=== PATIENT | female | born 1945 | race Caucasian/White ===

== ENCOUNTER → 2016-12-08 | Outpatient (CLI) | payer MEDICARE, BC | END | disposition home or self-care (01) | LOC: HKI 13:23 | PROVIDERS: ATTEND Orthopaedic Surgery | DX: T84.090A Other mechanical complication of internal right hip prosthesis, initial encounter (principal); Y83.8 Other surgical procedures as the cause of abnormal reaction of the patient, or of later complication, without mention of misadventure at the time of the procedure; M17.11 Unilateral primary osteoarthritis, right knee; M25.561 Pain in right knee; Z96.643 Presence of artificial hip joint, bilateral; Z96.652 Presence of left artificial knee joint | CPT/HCPCS: G0463 ==

== ENCOUNTER → 2017-01-10 | Outpatient (CLI) | payer MEDICARE, BC ==
[~2017-01-10] MED LIST: ALIS1TAB3 PO; AMLO2.5T2 PO; ASCO500C7 PO; CHOL400D8 PO; FERR325C PO; LACT1CAP56 PO; LEVO88TA PO; MULT-761 PO; POTA10TA15 PO; RESV100C PO; SALM1CAP2 PO; UBID1CAP3 PO
--- NOTE | 2017-01-10 12:32 | RADRPT ---
PROCEDURE: XR Right hip and pelvis. CLINICAL INDICATION: Right hip pain. Pelvic pain. Postop. TECHNIQUE: Three views. Frontal pelvis. Frontal and lateral right hip. COMPARISON: 12/06/2015. FINDINGS: There are bilateral total hip arthroplasties which appears satisfactory. There is no fracture, dislocation, or loosening. There is no lytic or blastic lesion. There are degenerative changes of the lower lumbar spine. IMPRESSION: 1. Satisfactory postoperative appearance of both hips. 2. Degenerative changes of the lower lumbar spine. 3. No change from 12/06/2015. RPTAT: QQ .Stewart Waters MD, MD Date Time Electronically viewed and signed by .Stewart Waters MD, on 01/10/2017 12:31 .R/
== END | disposition home or self-care (01) ==
LOC: HKI 10:12
PROVIDERS: ATTEND Orthopaedic Surgery
DX: Z01.818 Encounter for other preprocedural examination (principal); T84.090A Other mechanical complication of internal right hip prosthesis, initial encounter; Z96.643 Presence of artificial hip joint, bilateral; Y83.8 Other surgical procedures as the cause of abnormal reaction of the patient, or of later complication, without mention of misadventure at the time of the procedure; M17.11 Unilateral primary osteoarthritis, right knee; Z96.652 Presence of left artificial knee joint
CPT/HCPCS: 73502; G0463

== ENCOUNTER 2017-01-16 09:30 | Inpatient (IN) | payer MEDICARE, BC ==
[2017-01-10 13:00] VITALS: BMI 27.6
[~2017-01-16] VITALS: Ht 165.1 cm; Wt 74.2 kg
[2017-01-16] VITALS (32 sets, daily range): BP systolic 109–180; BP diastolic 52–70; PULSE 62–74; RESP 15–18; Ht 165.1 cm; Wt 74.2 kg
[~2017-01-16 09:30] MED LIST changes: +ETOMIDATE 20 MG INJ ONE; +LIDOCAINE 2% (SDV) 5 ML INJ ONE
[2017-01-16] MEDS ORDERED: PROPOFOL 20 ML ONE (12:02)
[2017-01-16] MEDS ORDERED: NEOSTIGMINE 3 MG/3 ML SYRINGE ONE (12:02)
[2017-01-16] MEDS ORDERED: GLYCOPYRROLATE 0.4 MG INJ ONE (12:02)
[2017-01-16] MEDS ORDERED: CEFAZOLIN 1 GM INJ ONE (12:02)
[2017-01-16] MEDS ORDERED: MIDAZOLAM 1 MG/ML 2 ML INJ ONE (12:02)
[2017-01-16] MEDS ORDERED: ROCURONIUM 50 MG INJ ONE (12:02)
[2017-01-16] MEDS ORDERED: FENTAnyl 50 MCG/ML VIAL ONE (12:02)
[2017-01-16] MEDS ORDERED: DEXAMETHASONE 4 MG/ML 1 ML INJ ONE (12:03)
[2017-01-16] MEDS ORDERED: ONDANSETRON 4 MG INJ ONE (12:03)
[2017-01-16] MEDS ORDERED: EXPAREL NOTE (BUPIVICAINE LIPOSOMAL) XX SCH (13:30)
--- NOTE | 2017-01-16 14:17 | HPN ---
Date/Time of Note Date/Time of Note DATE: 01/16/17 TIME: 14:17 Interval H&P Admission Note Pt. seen H&P reviewed: No system changes No change from H&P dated 01/15/17 by SIRENA Hunt MD Jan 16, 2017 14:17
[2017-01-16] MEDS ORDERED: LACTATED RINGER'S 1,000 ML IV SCH (14:30)
[2017-01-16] MEDS ORDERED: PAIN COCKTAIL - VANCOMYCIN IRR ONE ×7 (14:30)
[2017-01-16] MEDS ORDERED: TRANEXAMIC ACID 750 MG in SOD CHLORIDE 0.9% 100 ML IVPB ONE (14:30)
[2017-01-16] MEDS ORDERED: traMADOL 50 MG TAB X 1 DOSE PO ONE (14:30)
[2017-01-16] MEDS ORDERED: VANCOMYCIN 1 GM/NS 250 ML X1 BEFORE INCISION IVPB ONE (14:30)
[2017-01-16] MEDS ORDERED: oxyCODONE (CR) 10 MG TAB [oxyCONTIN] X1 DOSE PO ONE (14:30)
[2017-01-16] MEDS ORDERED: PREGABALIN 300 MG PO X1 PO ONE (14:30)
[2017-01-16] MEDS ORDERED: CELECOXIB 400 MG PO X1 DOSE PO ONE (14:30)
[2017-01-16] MEDS ORDERED: BUPIVACAINE LIPOSOME/PF 266 MG/20 ML VIAL INFIL ONE (14:30)
[2017-01-16] MEDS ORDERED: TRANEXAMIC ACID 750 MG in SOD CHLORIDE 0.9% 92.5 ML IV ONE (14:30)
[2017-01-16] MEDS ORDERED: VANCOMYCIN 1 GM INJ ONE ×2 (14:44→15:50)
[2017-01-16] MEDS ORDERED: POLYMYXIN B 500000 UNIT INJ ONE (14:44)
[2017-01-16] MEDS ORDERED: SODIUM CL BACTERIOSTATIC 30 ML INJ ONE (14:44)
[2017-01-16] MEDS ORDERED: BACITRACIN 50000 UNITS INJ ONE (14:47)
[2017-01-16] MEDS ORDERED: METOCLOPRAMIDE 10 MG INJ ONE (15:02)
[2017-01-16] MEDS ORDERED: TOBRAMYCIN 1.2 GM POWDER ONE (15:50)
[2017-01-16] MEDS ORDERED: DIPHENHYDRAMINE 50 MG INJ IV PRN (16:00)
[2017-01-16] MEDS ORDERED: HYDROmorphONE (0.2 MG/ML) 10ML SYG IV PRN ×3 (16:00)
[2017-01-16] MEDS ORDERED: hydrALAzine 20 MG INJ IV PRN (16:00)
[2017-01-16] MEDS ORDERED: TRIMETHOBENZAMIDE 100 MG/ML VIAL IM PRN (16:00)
[2017-01-16] MEDS ORDERED: FENTAnyl 50 MCG/ML VIAL IV PRN ×3 (16:00)
[2017-01-16] MEDS ORDERED: LABETALOL HCL 20MG INJ IV PRN (16:00)
[2017-01-16] MEDS ORDERED: MIDAZOLAM 1 MG/ML 2 ML INJ IV PRN (16:00)
[2017-01-16] MEDS ORDERED: MEPERIDINE 25 MG INJ IV PRN (16:00)
[2017-01-16] MEDS ORDERED: EPHEDrine SULFATE 50 MG/5 ML SYG IV PRN (16:00)
[2017-01-16] MEDS ORDERED: ONDANSETRON 4 MG INJ IV PRN ×2 (16:00→18:00)
[2017-01-16] MEDS ORDERED: ALBUMIN HUMAN 5% 500 ML ONE (16:18)
[2017-01-16] MEDS ORDERED: THROMBIN 5000 UNIT VIAL ONE (16:29)
--- NOTE | 2017-01-16 17:51 | OPR ---
Date/Time of Note Date/Time of Note DATE: 01/16/17 TIME: 17:43 Operative Report Free Text/Dictation Dictation # [id number] Procedure Date: Jan 16, 2017 Preoperative Diagnosis Mechanical Complications Right Metal on Metal Jess Postoperative Diagnosis Same Operation Performed Revision Right JESS Surgeon: SIRENA LEON MD dental assistant: JEANNE CARMICHAEL PA-C Anesthesia: general, spinal Anesthesiologist: Charlie Mosqueda M.D. Estimated Blood Loss: other Specimens Aerobic and anaerobic cultures x 2 Tubes/Drains Hemovac x 1 Complications: None Pt Condition Post Procedure: stable Disposition: PACU SIRENA LEON MD Jan 16, 2017 17:51
--- NOTE | 2017-01-16 17:52 | PN ---
Date/Time of Note Date/Time of Note DATE: 01/16/17 TIME: 17:49 Assessment/Plan Lines/Catheters IV Catheter Type (from Nrsg): Peripheral IV Assessment/Plan Assessment/Plan Stable in PACU, s/p revision right JESS -continue abx x 72 hours until final culture results -pain meds as needed -ASA/SCDs for DVT prophylaxis -posterior hip precautions -OOB with PT -check AM labs -monitor drain -d/c jiménez in AM XR of the right hip is pending at this time Subjective 24 Hr Interval Summary Stable in PACU. Denies pain. Moving all extremities. Drowsy from anesthesia. Exam/Review of Systems Vital Signs Vitals Vital Signs Date Time Temp Pulse Resp B/P Pulse Ox O2 Delivery O2 Flow Rate FiO2 01/16/17 12:19 97.6 18 180/70 100 Room Air Exam Free Text/Dictation Hemovac: minimal Dressing dry Incision clean, dry, and intact without redness or drainage 5/5 Quadriceps, Tibialis Anterior, EHL, Gastroc, Soleus, Peroneals Normal sensation Palpable DT/PT, CR <2 sec No distal edema JEANNE CARMICHAEL PA-C Jan 16, 2017 17:52
[2017-01-16] MEDS ORDERED: BISACODYL 10 MG SUPP PR PRN (18:00)
[2017-01-16] MEDS ORDERED: DIPHENHYDRAMINE 25 MG CAP PO PRN (18:00)
[2017-01-16] MEDS ORDERED: oxyCODONE 5 MG TAB PO PRN ×2 (18:00)
[2017-01-16] MEDS ORDERED: NA PHOSPHATE/BIPHOS 133 ML ENEMA PR PRN (18:00)
[2017-01-16] MEDS ORDERED: ASPIRIN (EC) 325 MG TAB PO ONE (18:00)
[2017-01-16] MEDS ORDERED: NACL 0.9% 3 ML SYG IV SCH (18:00)
[2017-01-16] MEDS ORDERED: HYDROmorphONE 1 MG/ML SYG IV PRN (18:00)
[2017-01-16] MEDS ORDERED: MAGNESIUM HYDROXIDE 30ML CUP PO PRN (18:00)
--- NOTE | 2017-01-16 18:11 | RADRPT ---
PROCEDURE: Pelvis x-ray AP view only. CLINICAL INDICATION: Post op in PACU TECHNIQUE: Single AP view of the pelvis performed. COMPARISON: AP pelvis 01/15/2017 05:22 p.m. FINDINGS: There are bilateral arthroplasties. The acetabular and femoral components are anatomically aligned. There is a drainage catheter adjacent to the proximal right femur with adjacent subcutaneous emphy sema. There are radiopaque pledgets around the neck of the femoral component of the right hip prost hesis. There are degenerative changes in the lower lumbar spine and disk space narrowing at the lum bosacral junction. IMPRESSION: 1. Postsurgical changes with a drainage catheter subcutaneous emphysema noted lateral to the right hip prosthesis. 2. Stable appearance of the left hip prosthesis as compared to 01/15/2017. 3. Osteoarthritis of the lower lumbar spine and lumbosacral junction. RPTAT:AAJJ Physician Martinez Date Time Electronically viewed and signed by Physician Martinez on 01/16/2017 18:11 RIVER/
[2017-01-16] MEDS: CEFAZOLIN 2 GM/50 ML (PMX) 50 ML IVPB SCH (18:12)
[2017-01-16 18:13] LABS: HEMATOCRIT 31.9 % (37.0-47.0); HEMOGLOBIN 10.8 g/dl (12.0-16.0)
[2017-01-16] MEDS: ACETAMINOPHEN 1000MG/100ML IV 100 ML IVPB SCH (18:13)
--- NOTE | 2017-01-16 18:19 | OPR ---
DATE OF OPERATION: 01/16/2017 PREOPERATIVE DIAGNOSIS: Mechanical complications of [id number] right total hip arthroplasty. POSTOPERATIVE DIAGNOSIS: Mechanical complications of [id number] right total hip arthroplasty. OPERATION PERFORMED: Revision right total hip arthroplasty. SURGEON: Sirena William MD FOUR SLIDE OPERATOR: ELISEO Love COMPONENTS USED: Biomet G7 56 mm cup with a dual mobility 44 mm polyethylene head and a 28 +8.5 ceramic inner head with a titanium sleeve. ANESTHESIA: General endotracheal intubation plus periarticular injection plus spinal. ANESTHESIOLOGIST: Dr. Mosqueda. ESTIMATED BLOOD LOSS: 400 mL. INTRAVENOUS FLUIDS: Two liters crystalloid and 500 mL of albumin. SPECIMENS: Aerobic and anaerobic culture of joint fluid x2. DRAINS: Hemovac x1. COMPLICATIONS: None. DISPOSITION: Patient tolerated the procedure well and was taken to the recovery room in stable condition. INDICATIONS: The patient is a 71-year-old woman who had a previous right total hip arthroplasty using a [id number] construct with an ASR cup. She has developed some pain and elevated cobalt and chromium levels. I felt that she would benefit from a revision by removing the ASR cup and placing a modular cup. The stem appeared well fixed and I told her that I would be likely to keep the stem, but there was a chance that if was malpositioned or reduced, it would need to be revised. The risks, benefits, alternatives of the procedure were explained in detail to the patient. I explained the risks of the surgery to include but not be limited to bleeding and possible need for blood transfusion, infection, pain, stiffness, neurovascular injury with possible numbness, weakness, and/or paralysis anywhere from the hip down to the toes, fracture, instability, dislocation, leg length inequality, wear and/or loosening of the prosthesis and need for revision at a later date, wound healing problems, blood clots, pulmonary embolism, and anesthetic complications such as heart attack, stroke, GI bleed, pneumonia and/or . Ample time was allowed for the patient to ask questions, all of which were addressed and answered. The patient understood and wished to proceed. Informed consent was signed prior to the procedure. DESCRIPTION OF PROCEDURE: The patient's right hip was initialed with a marking pen in the preoperative holding area to identify the correct operative site. The patient was then brought to the operating room and transferred from the [facility] to the operating table where she was administered a spinal anesthetic and then anesthetized and intubated. Burch catheter was placed. Time out was performed to confirm the right side was the correct operative site. She was given 1 gram of intravenous vancomycin and 1 gram of Ancef within 1 hour prior to the incision. She was then turned to lateral decubitus position with the right side up. An axillary roll was placed under the left chest wall. She was secured into the pegboard and all bony prominences were well padded. Right hip and lower extremity were prepped and draped in usual sterile fashion. A posterolateral incision was made centered over the greater trochanter. Please note the previous scar was markedly posterior and I felt that it was not in a good position to be excised and decided to ignore it. The incision was carried down to subcutaneous tissue and fat with sharp dissection. The iliotibial band and gluteus yancy muscle fascia were incised along the length of the wound. The gluteus yancy muscle fibers were bluntly split. Upon going through the gluteus yancy, I encountered fluid that tracked into the hip joint. The fluid was swabbed for aerobic and anaerobic culture x2. It was normal in color and consistency and had no purulent component. The posterior capsule and short external rotator repair had failed and the Ethibond suture was excised. The capsule and short external rotators were completely detached from the greater trochanter. The fibrous tissue around the hip was excised with a scalpel blade. The ASR head was dislocated from the cup and disimpacted from the trunnion. There was some metal wear debris on the trunnion, which was debrided with a Bovie scratch pad and irrigated. A pocket was created anteriorly by excising additional fibrous tissue from the anterior acetabulum and the trunnion was placed into this pocket and the femur retracted anteriorly. Hip retractors were placed around the acetabulum. At this point, the [place] 54 mm explant device was used with a 46 mm inner trial head, first with the short blade and then with the long blade. The cup came out fairly easily. It was passed off to the back table. Please note the cup and the head were placed into a specimen container with formalin. The stem was inspected and noted to be well fixed and had about 10 degrees of anteversion. Retractors were placed back around the acetabulum which was inspected and the anterior and posterior columns medial wall were intact. I then reamed the acetabulum to a 53 reamer going slightly medial then superior, and then went up to a 55 mm reamer, getting a good bite. A 56 mm G7 Biomet cup was opened and impacted into the acetabulum and we got a good bite. This had about 45 degrees of abduction and 20 degrees of anteversion. A trial liner was placed into position. I trialed with the 40+8.5 head. The hip was taken through range of motion and was quite stable, it had 110 degrees of flexion, had 90 degrees of flexion and neutral abduction, the hip was stable posteriorly to 80 degrees of internal rotation. The hip came to full extension with no posterior impingement or anterior instability. The [place] sign showed a combined forward flexion of 45 degrees. Cross table AP pelvis showed the components to be in good position and the cup to be well aligned. The trial was dislocated, the trial liner removed. A single 6.5 screw was drilled and filled with appropriate length, getting a good bite. I decided used the dual mobility cup to enhance stability and range of motion. At this point, the metal liner was impacted into the cup and then the 44 mm polyethylene ball with a 28.5 ceramic ball with a titanium sleeve was assembled on the back table and then impacted onto the trunnion then reduced in the acetabulum. Hip was taken through range of motion, had the same range of motion and stability with the trials. The hip was irrigated with Betadine and saline and then antibiotic saline pulsatile lavage. Hemostasis was good. The soft tissues were infiltrated with a mixture of 0.5% ropivacaine, 4 mg Duramorph , 30 mg Toradol and 266 mg of liposomal bupivacaine. Stimulan beads mixed with vancomycin and tobramycin had been mixed and once in the appropriate stage, were placed into the deep portion of the hip joint. Surgiflo was injected as well to optimize hemostasis. The posterior capsule short external rotator sleeve was repaired back to the greater trochanter through drill holes with #2 FiberWire. The quadratus femoris was repaired back to the vastus lateralis with running #1 Vicryl. The gluteus yancy tendon had been partially released and was repaired with interrupted #1 Vicryls in a xxtukz-si-omnis fashion. The sciatic nerve was palpated and noted to be intact with no undue tension. A Hemovac drain had been placed in the deep portion of the wound and brought out the anterolateral thigh. The iliotibial band was repaired with interrupted #1 Ethibond in a tegnpk-sh-gttgj fashion. The gluteus yancy layer was repaired with a running #1 Vicryl. The deep fat layer was irrigated and closed with 2-0 Stratafix and 3-0 Vicryl and skin chelsi on the skin. Skin edges were sealed with Dermabond. The wound was covered with silver Mepilex dressing and the drain secured with 3-0 nylon and a 4 x 4 and Tegaderm. The patient was taken out of the pegboard and transferred to the hospital. She was placed in supine position with an abduction pillow between her legs. She was awakened, extubated , and taken to the recovery room in stable condition. Dictated By: SIRENA BOYER/IRWIN Conf#: [id number] DID#: [id number] MTDRubin
[2017-01-16 18:36] LABS: CALCIUM 9.3 mg/dl (8.4-10.2); CREATININE 0.61 mg/dl (0.44-1.00); POTASSIUM 3.2 mmol/L (3.5-5.1)
--- NOTE | 2017-01-16 19:04 | CONS ---
DATE OF ADMISSION: 01/16/2017 DATE OF CONSULTATION: 01/16/2017 TYPE OF CONSULTATION: Postoperative medical. Dr. William, Thank you very much for allowing me to evaluate this 71-year-old female who just underwent revision of a right total hip arthroplasty. HISTORICAL EVENTS: As you well know, the patient did have a prior right hip surgery, and after noti ng a rise in her cobalt and chromium level, it was felt that intervention was needed. In recovery p ostoperatively, she is comfortable without cough, wheezing, shortness of breath or chest pain. PAST MEDICAL HISTORY: Includes: 1. Hypertension. 2. Hypothyroidism. 3. Osteoarthritis. 4. Osteoporosis. 5. History of hiatal hernia. 6. History of mitral valve prolapse. 7. Cholecystectomy. 8. Total abdominal hysterectomy and bilateral salpingo-oophorectomy. 9. Right total hip arthroplasty in 2007. 10. Left knee arthroplasty in 2007 with antecedent left knee arthroscopic surgery. 11. Left total hip arthroplasty. MEDICATIONS: 1. Synthroid 88 mcg per day. 2. Tekturna 300/12.5. 3. Norvasc 2.5. 4. K-Keturah 20 mEq per day. 5. Vitamin D 5000 per day. 6. CoQ10 one per day. 7. Risperdal daily. 8. Iron 325 mg per day. FAMILY HISTORY: Positive for hypertension, leukemia. ALLERGIES: INCLUDE HEADACHES ____ RELATED TO FORTEO. PHYSICAL EXAMINATION: GENERAL: [place] female. No acute distress. VITAL SIGNS: BP 122/80, pulse 70, respirations 20. She was afebrile. EYES: Extraocular muscles were full. NOSE, MOUTH AND THROAT: Normal. NECK: Supple. There was no jugular venous distention, thyroid enlargement, adenopathy. LUNGS: Clear. HEART: Rhythm regular. No murmur. No third or fourth sound. ABDOMEN: Nontender. Liver and spleen were not palpable. EXTREMITIES: No edema. NEUROLOGIC: No lateralizing motor weakness. IMPRESSION: 1. Stable postoperatively, right hip revision. 2. History of hypertension. Blood pressure medications will be resumed and blood pressure monitore d throughout. 3. Will evaluate daily for signs and symptoms of thromboembolic disease despite appropriate deep ve nous thrombosis prophylaxis. 4. Hypothyroidism. To continue thyroid replacement. Dictated By: GRACE LOTT MD MR/NTS Conf#: [id number] [facility]#: [id number]
--- NOTE | 2017-01-16 19:15 | RADRPT ---
PROCEDURE: Right hip portable film CLINICAL INDICATION: Postoperative evaluation and pack U TECHNIQUE: AP right hip COMPARISON: 12/04/2013 right hip series and 01/10/2017 FINDINGS: Postsurgical changes are noted at the right hip with surgical skin chelsi and a right subcutaneous drain and emphysematous changes are noted. Placement of radiodense beads are noted in the right hip joint. The patient is status post remote right total hip replacement. No evidence for acute fractures or dislocations. Intact hardware is present. IMPRESSION: 1. Status post placement of radiodense beads with in the right hip joint with postsurgical changes as noted above. 2. Status post remote right total hip replacement with intact hardware. RPTAT: HDC .Ashlee Polk MD, Date Time Electronically viewed and signed by .Ashlee Polk MD, on 01/16/2017 19:15 .C/
[2017-01-16] MEDS ORDERED: TRANEXAMIC ACID 740 MG in SOD CHLORIDE 0.9% 100 ML IVPB ONE (21:00)
[2017-01-16] MEDS: LOSARTAN 50 MG TAB PO SCH (21:50)
[2017-01-16] MEDS: PREGABALIN 50 MG CAP PO SCH (23:45)
[2017-01-16] MEDS: LACTATED RINGER'S 1,000 ML IV SCH (23:47)
[2017-01-16] MEDS: PANTOPRAZOLE (EC) 40 MG TAB PO SCH (23:48)
[2017-01-16] MEDS: DOCUSATE SODIUM 100 MG CAP PO SCH (23:48)
[2017-01-17] VITALS: BP 137/62; PULSE 72; RESP 16
[2017-01-17] MEDS ORDERED: TRANEXAMIC ACID 740 MG in SOD CHLORIDE 0.9% 100 ML IVPB ONE ×2
[2017-01-17] MEDS: ACETAMINOPHEN 1000MG/100ML IV 100 ML IVPB SCH ×3 (00:10→12:30)
[2017-01-17] MEDS: traMADol 50 MG TAB PO SCH ×4 (00:15→18:12)
[2017-01-17] MEDS: LACTATED RINGER'S 1,000 ML IV SCH ×3 (01:42→17:42)
[2017-01-17] MEDS: CEFAZOLIN 2 GM/50 ML (PMX) 50 ML IVPB SCH ×3 (01:54→18:12)
[2017-01-17 02:00] VITALS: BP 108/56; PULSE 57; RESP 16
[2017-01-17 04:00] VITALS: BP 103/52; PULSE 58; RESP 16
[2017-01-17] MEDS: PANTOPRAZOLE (EC) 40 MG TAB PO SCH ×2 (05:32→18:12)
[2017-01-17 05:34] LABS: HEMATOCRIT 26.7 % (37.0-47.0); HEMOGLOBIN 8.6 g/dl (12.0-16.0)
[2017-01-17 05:45] LABS: CALCIUM 9.1 mg/dl (8.4-10.2); CREATININE 0.62 mg/dl (0.44-1.00); POTASSIUM 4.5 mmol/L (3.5-5.1)
[2017-01-17 05:47] LABS: MAGNESIUM 1.4 mg/dl (1.7-2.5); PHOSPHORUS 4.5 mg/dl (2.5-4.9)
--- NOTE | 2017-01-17 06:58 | PREOPHP ---
DATE OF ADMISSION: 01/16/2017 HISTORY OF PRESENT ILLNESS: This 71 year-old white female was seen in my office for a preop on 01/03. The patient was scheduled for a revision of a right total hip arthroplasty due to mechanical complications. She has been seen by Dr. Leon on several occasions and it was decided at this time to revise the previous right total hip arthroplasty. The patient's cobalt and chromium levels have r isen since 2010 from 2.7 to 5.2 of her cobalt level and the chromium level increased from 1.3 to 3.2 . ALLERGIES/____: HEADACHES WITH FORTEO. MEDICATIONS: 1. Synthroid 88 mcg daily. 2. Tekturna 300/12.5 every day. 3. Norvasc 2.5 mg daily. 4. Hydrochlorothiazide 12.5 mg daily. 5. Klor-Con 20 mEq daily. 6. Multivitamin tablets daily. 7. Probiotics daily. 8. Vitamin D 5000 units daily. 9. CoQ10 1 daily. 10. [place] oil 1 daily. 11. Risperdal daily. 12. Vitamin C daily. 13. Ferrous sulfate 325 mg daily. PAST HISTORY: The patient has a long history of hypertension and hypothyroidism. She has generalized osteoarthrosis, osteoporosis, hiatal hernia and mitral valve prolapse. SURGERIES: Cholecystectomy, total abdominal hysterectomy and bilateral salpingo-oophorectomy in 1988 , right total hip arthroplasty in 2007. A left total knee arthroplasty in 2007, previous left knee a rthroscopy, and a left total hip arthroplasty. HABITS: The patient has never smoked. She drinks coffee daily and hardly ever uses alcohol. FAMILY HISTORY: Father had hypertension and leukemia. Mother at age 86 with Alzheimer's disease . REVIEW OF SYSTEMS: A 14 point review of systems was specific for a left hip and right hip discomfort . All other systems are noncontributory. PHYSICAL EXAMINATION: GENERAL: Well-nourished, well-developed female in no acute distress. VITAL SIGNS: Blood pressure 112/70, pulse 72, respirations 16, temperature normal. HEENT: Sclerae, conjunctivae are clear, nonicteric. Extraocular motions normal. Pupils equal, and r eactive to light and accommodation. NECK: Thyroid not enlarged. The lymph nodes were normal. No thyroid enlargement. Carotid pulses are 2+ with no bruits. HEART: Regular sinus rhythm. No murmurs, chills or heaves noted. CHEST: Clear to auscultation. BREASTS: No masses. ABDOMEN: There is a lower scar from previous surgery. Costovertebral angles are soft. There is obes ity. No organomegaly or masses are noted. No bruits. Bowel sounds normal. LYMPH NODES: No cervical axillary or groin adenopathy. BLOOD VESSELS: All peripheral blood vessels are normal. NEUROLOGIC: Patient is alert and oriented to time, place and person. Cranial nerves 2-12 are grossly unremarkable. Motor, sensory and cerebellar systems are unremarkable. BACK AND EXTREMITIES: There are scars over both knees and over both hips. IMPRESSION: 1. Right hip mechanical complications for revision of right total hip arthroplasty. 2. Hypertension. 3. Hypothyroidism. 4. Generalized osteoarthrosis. 5. Osteoporosis. 6. History of mitral valve prolapse. DISCUSSION: Based on my evaluation of patient's health status and her preoperative blood work, chest x-ray and EKG she is medically cleared for the above prescribed surgical procedure. Dr. Jorge Baig MD dictating Pre-OP History and Physicial for Dr. Bogdan Leon MD Dictated By: BOGDAN LEON MD EZ/NTS Conf#: [id number] DID#: [id number]
[2017-01-17] MEDS: LEVOTHYROXINE 88 MCG TAB PO SCH (07:28)
[2017-01-17 07:43] VITALS: BP 112/54; RESP 19
--- NOTE | 2017-01-17 08:38 | PN ---
Date/Time of Note Date/Time of Note DATE: 01/17/17 TIME: 08:37 Assessment/Plan Lines/Catheters IV Catheter Type (from Nrsg): Peripheral IV Jiménez in Place (from Nrsg): Yes Assessment/Plan Assessment/Plan Stable POD #1, s/p revision right JESS -continue abx until final culture results -pain meds as needed -ASA/SCDs for DVT prophylaxis -OOB with PT -posterior hip precautions -monitor drain -check AM labs -d/c jiménez -will plan to discharge home on sunday if stable Subjective 24 Hr Interval Summary No acute overnight events. Denies any significant pain. Did not start PT yet. H& H low but will monitor for now. VSS, afebrile. Will plan to go home upon discharge. Exam/Review of Systems Vital Signs Vitals Vital Signs Date Time Temp Pulse Resp B/P Pulse Ox O2 Delivery O2 Flow Rate FiO2 01/17/17 07:43 98.0 56 19 112/54 98 01/17/17 04:00 Nasal Cannula 2.0 Intake and Output 01/16/17 01/16/17 01/17/17 15:00 23:00 07:00 Intake Total 2607.4 ml 857.4 ml Output Total 1110 ml 60 ml Balance 1497.4 ml 797.4 ml Exam Free Text/Dictation Hemovac: 70cc Dressing dry Incision clean, dry, and intact without redness or drainage 5/5 Quadriceps, Tibialis Anterior, EHL, Gastroc, Soleus, Peroneals Normal sensation Palpable DT/PT, CR <2 sec No distal edema Results Result Diagram: 01/17/17 0442 01/17/17 0442 JEANNE CARMICHAEL PA-C Jan 17, 2017 08:38
[2017-01-17] MEDS ORDERED: POTASSIUM CHLORIDE (SR) 10 MEQ TAB PO SCH (09:00)
[2017-01-17] MEDS: LOSARTAN 50 MG TAB PO SCH (09:00)
[2017-01-17] MEDS: AMLODIPINE 2.5 MG TAB PO SCH (09:00)
[2017-01-17] MEDS: PREGABALIN 50 MG CAP PO SCH ×2 (09:00→21:00)
[2017-01-17] MEDS ORDERED: [UNRECOGNIZED DRUG - OTHER] PO SCH (09:00)
[2017-01-17] MEDS ORDERED: HYDROCHLOROTHIAZIDE PO SCH (09:00)
[2017-01-17] MEDS ORDERED: ALISKIREN PO SCH (09:00)
[2017-01-17] MEDS: ASPIRIN (EC) 325 MG TAB PO SCH ×2 (09:25→20:53)
[2017-01-17] MEDS: CELECOXIB 200 MG CAP PO SCH (09:25)
[2017-01-17] MEDS: DOCUSATE SODIUM 100 MG CAP PO SCH ×2 (09:26→20:53)
[2017-01-17 11:39] LABS: ADD UMIC YES; URINE BILIRUBIN (Dip) NEGATIVE (NEGATIVE); URINE BLOOD (Dip) TRACE (NEGATIVE); URINE COLOR LT. YELLOW (YELLOW); URINE GLUCOSE (Dip) NEGATIVE (NEGATIVE); URINE KETONES (Dip) NEGATIVE (NEGATIVE); URINE LEUKOCYTE ESTERASE (Dip) NEGATIVE (NEGATIVE); URINE NITRITE (Dip) NEGATIVE (NEGATIVE); URINE TOTAL PROTEIN (Dip) NEGATIVE (NEGATIVE); URINE UROBILINOGEN (Dip) 0.2 E.U./dL (0.1-1.0)
[2017-01-17 12:05] LABS: BACTERIA,URINE OCCASIONAL
--- NOTE | 2017-01-17 12:12 | CONS ---
Date/Time of Note Date/Time of Note DATE: 01/17/17 TIME: 12:08 Assessment/Plan Assessment/Plan Chief Complaint/Hosp Course 1. she is 1 day post op a R JESS revision , she is doing well . 2. continue current RX and PT 3. H/H is low , will be repeated Problems: Consultation Date/Type/Reason Admit Date/Time Jan 16, 2017 at 10:58 Initial Consult Date 24 HR Interval Summary Free Text/Dictation She is 1 day post op a R hip surgery . she has no complaints . Constitutional: no complaints Exam/Review of Systems Vital Signs Vitals Vital Signs Date Time Temp Pulse Resp B/P Pulse Ox O2 Delivery O2 Flow Rate FiO2 01/17/17 07:43 98.0 56 19 112/54 98 01/17/17 04:00 Nasal Cannula 2.0 Intake and Output 01/16/17 01/16/17 01/17/17 15:00 23:00 07:00 Intake Total 2607.4 ml 857.4 ml Output Total 1110 ml 60 ml Balance 1497.4 ml 797.4 ml Exam Constitutional: alert, oriented, well developed Respiratory: clear to auscultation, normal air movement Cardiovascular: regular rate and rhythm Gastrointestinal: soft Musculoskeletal: nl extremities to inspection Results Result Diagram: 01/17/17 0442 01/17/17 0442 Results 24 hrs Laboratory Tests Test 01/16/17 18:03 01/17/17 04:42 01/17/17 09:30 Hemoglobin 10.8 L 8.6 #L Hematocrit 31.9 L 26.7 L Sodium Level 135 132 L Potassium Level 3.2 L 4.5 Chloride Level 99 100 Carbon Dioxide Level 25 27 Anion Gap 14 10 Blood Urea Nitrogen 15 16 Creatinine 0.61 0.62 Glucose Level 125 130 Calcium Level 9.3 9.1 Phosphorus Level 4.5 Magnesium Level 1.4 L Urine Color LT. YELLOW Urine Clarity HAZY Urine pH 6.0 Urine Specific [place] 1.020 Urine Ketones NEGATIVE Urine Nitrite NEGATIVE Urine Bilirubin NEGATIVE Urine Urobilinogen 0.2 E.U./dL Urine Leukocyte Esterase NEGATIVE Urine Microscopic RBC 2-5 Urine Microscopic WBC 10-25 Urine Bacteria OCCASIONAL Urine Hyaline Casts RARE Urine Other Urine Hemoglobin TRACE Urine Glucose NEGATIVE Urine Total Protein NEGATIVE Medications Medications Current Medications Miscellaneous Information 1 ea NOTE XX ; Start 01/16/17 at 13:30; Stop 4/22/17 at 13:29 Amlodipine Besylate 2.5 mg 2.5 mg DAILY PO ; Start 01/17/17 at 09:00 Lactated Ringer's (Lr) 1,000 ml @ 125 mls/hr Q8H IV Last administered on 10:05; Admin Dose 125 MLS/HR; Start 01/16/17 at 17:42 Celecoxib 200 mg 200 mg DAILY PO Last administered on 01/17/17 09:25; Admin Dose 200 MG; Start 01/17/17 at 09:00 Acetaminophen (Ofirmev 1000mg/ 100ml Iv) 100 ml @ 400 mls/hr Q6 IVPB Last administered on 01/17/17 05:32; Admin Dose 400 MLS/HR; Start 01/16/17 at 18:00 ; Stop 01/17/17 at 17:59 Tramadol HCl (Ultram) 50 mg Q6 PO Last administered on 01/17/17 05:32; Admin Dose 50 MG; Start 01/17/17 at 00:00; Stop 01/19/17 at 00:00 Oxycodone HCl (Roxicodone) 5 mg Q4H PRN PO PAIN LEVEL 1-3; Start 01/16/17 at 18 :00 Oxycodone HCl (Roxicodone) 10 mg Q4H PRN PO PAIN LEVEL 4-7; Start 01/16/17 at 18:00 Hydromorphone HCl 1 mg 1 mg Q3H PRN IV PAIN LEVEL 8-10; Start 01/16/17 at 18:00 Cefazolin Sodium/ Dextrose (Ancef 2 Gm/50 ml (Pmx)) 50 ml @ 100 mls/hr Q8H IVPB Last administered on 01/17/17 01:54; Admin Dose 100 MLS/HR; Start at 18:00; Stop 01/19/17 at 17:59 Ondansetron HCl (Zofran Inj) 4 mg Q6H PRN IV NAUSEA AND/OR VOMITING Last administered on 01/17/17 07:08; Admin Dose 4 MG; Start 01/16/17 at 18:00 Bisacodyl (Dulcolax Supp) 10 mg Q12H PRN [place] CONSTIPATION; Start 01/16/17 at 18: 00 Magnesium Hydroxide (Milk Of Mag) 30 ml BID PRN PO CONSTIPATION; Start at 18:00 Sodium Biphosphate/ Sodium Phosphate (Fleet Enema) 133 ml DAILY PRN [place] CONSTIPATION; Start 01/16/17 at 18:00 Docusate Sodium (Colace) 100 mg BID PO Last administered on 01/17/17 09:26; Admin Dose 100 MG; Start 01/16/17 at 21:00 Diphenhydramine HCl (Benadryl) 25 mg Q6H PRN PO PRURITUS; Start 01/16/17 at 18: 00 Aspirin (Ecotrin) 325 mg BID PO Last administered on 01/17/17 09:25; Admin Dose 325 MG; Start 01/17/17 at 09:00 Pregabalin (Lyrica) 50 mg BID PO ; Start 01/16/17 at 21:00 Pantoprazole (Protonix Tab) 40 mg BID@06,18 PO Last administered on 01/17/17 05:32; Admin Dose 40 MG; Start 01/16/17 at 18:00 Losartan Potassium (Cozaar) 50 mg DAILY PO ; Start 01/16/17 at 19:00 PASTORA YEPEZ MD Jan 17, 2017 12:12
--- NOTE | 2017-01-17 12:40 | RADRPT ---
PROCEDURE: Intraoperative imaging of the right hip with fluoroscopy. CLINICAL INDICATION: Right hip pain. Intraoperative. TECHNIQUE: 6 images of the right hip were obtained in the operating room with a portable x-ray of the. No radiologist was in attendance. COMPARISON: 12/04/2013. FINDINGS: Images demonstrate revision of the right hip total arthroplasty. Incidental note is also made of th e left hip total arthroplasty. IMPRESSION: 1. Satisfactory intraoperative imaging of the right hip. RPTAT: QQ .Stewart Waters MD, Date Time Electronically viewed and signed by .Stewart Waters MD, on 01/17/2017 12:39 .R/
[2017-01-17] MEDS ORDERED: MAGNESIUM SULFATE 2 GM/50 ML 50 ML IVPB ONE (13:30)
[2017-01-17 21:01] VITALS: BP 110/53; RESP 20
[2017-01-18] MEDS: LACTATED RINGER'S 1,000 ML IV SCH (01:47)
[2017-01-18] MEDS: CEFAZOLIN 2 GM/50 ML (PMX) 50 ML IVPB SCH ×3 (01:56→20:37)
[2017-01-18 05:21] LABS: HEMATOCRIT 20.8 % (37.0-47.0)
[2017-01-18 05:31] LABS: HEMOGLOBIN 6.9 g/dl (12.0-16.0)
[2017-01-18 05:38] LABS: CREATININE 0.88 mg/dl (0.44-1.00); POTASSIUM 4.4 mmol/L (3.5-5.1)
[2017-01-18] MEDS: traMADol 50 MG TAB PO SCH ×4 (06:00→17:57)
[2017-01-18] MEDS: PANTOPRAZOLE (EC) 40 MG TAB PO SCH ×2 (06:13→17:57)
[2017-01-18] MEDS: LEVOTHYROXINE 88 MCG TAB PO SCH (06:52)
[2017-01-18 07:55] VITALS: BP 138/64; RESP 18
[2017-01-18 08:28] LABS: HEMATOCRIT 22.2 % (37.0-47.0); HEMOGLOBIN 7.5 g/dl (12.0-16.0)
[2017-01-18] MEDS: PREGABALIN 50 MG CAP PO SCH ×2 (09:00→20:43)
[2017-01-18] MEDS: ASPIRIN (EC) 325 MG TAB PO SCH ×2 (09:47→20:42)
[2017-01-18] MEDS: CELECOXIB 200 MG CAP PO SCH (09:47)
[2017-01-18] MEDS: DOCUSATE SODIUM 100 MG CAP PO SCH ×2 (09:48→20:42)
[2017-01-18] MEDS: LOSARTAN 50 MG TAB PO SCH (09:50)
[2017-01-18] MEDS: AMLODIPINE 2.5 MG TAB PO SCH (09:51)
--- NOTE | 2017-01-18 10:04 | PDOCDIS ---
Discharge Instructions DIAGNOSIS Discharge Diagnosis: s/p revision right JESS CONDITION Patient Condition: Good HOME CARE INSTRUCTIONS: Diet Instructions: RegularSpecial Diet: . ACTIVITY: Activity Restrictions: Slowly Increase Activity Rest between Activity Avoid heavy lifting Do not Drive Do not operate Machinery Do not operate Power Tool Avoid Heavy Housework Keep Limb Elevated Bathing Restrictions: ShowerActivity Restrictions Comment: waterproof incisional area please FOLLOW UP/APPOINTMENTS Appointments follow up in the office on 01/26/17 OTHER ORDERS: Other Orders: S/P Posterior JESS Physical Therapy: Three times per week at home x 2 weeks Daily in Rehab/SNF WB STATUS: WBAT Strengthening exercises for both upper and un-operated lower extremities. 1. Gait training with front wheeled walker 2. Wide base gait, no pivot turns. 3. Abductor strengthening. 4. Quadriceps and hamstring strengthening. 5. May switch to cane in contra lateral hand 6 weeks after surgery. 6. Physical Therapy can open case if nursing is not available. 7. Ice Packs while at rest to surgical wound for 20 minutes, 3 times/day. 8. Patient requires mobile SCDs to reduce risk of developing DVT following JESS. Patient will use the mobile SCDs for 30 days postoperatively. Hip Precautions: no flexion beyond 90 degrees, no adduction, no internal rotation. Bathing assistance by home health aide twice weekly if Medicare patient. Occupational Therapy: Evaluation for assistive devices and ADL training. Wound Care: Keep incision dry & covered with Tegaderm until first visit with Dr. William Anticoagulation Orders: Enteric Coated Aspirin 325 mg po bid x 6 weeks from date of surgery Follow-up:Call for an appointment with Dr. William in 1 week after discharged from hospital at DME Orders: ALEXY, 3-in-1 Commode, Mobile SCDs JEANNE CARMICHAEL PA-C Jan 18, 2017 10:04
--- NOTE | 2017-01-18 10:33 | PN ---
Date/Time of Note Date/Time of Note DATE: 01/18/17 TIME: 10:31 Assessment/Plan Lines/Catheters IV Catheter Type (from Nrsg): Peripheral IV Burch in Place (from Nrsg): No Assessment/Plan Assessment/Plan Stable POD #2, s/p revision right JESS -continue abx until final culture results -pain meds as needed -ASA/SCDs for DVT prophylaxis -OOB with PT -posterior hip precautions -H&H low. Will speak with Dr. Brewer but will likely need blood transfusion -ARU eval -d/c home versus ARU tomorrow Subjective 24 Hr Interval Summary No acute overnight events. H&H low but patient asymptomatic. May require blood transfusion. No growth on wound culture. VSS, afebrile. Exam/Review of Systems Vital Signs Vitals Vital Signs Date Time Temp Pulse Resp B/P Pulse Ox O2 Delivery O2 Flow Rate FiO2 01/18/17 07:55 97.6 70 18 138/64 97 01/17/17 04:00 Nasal Cannula 2.0 Intake and Output 01/17/17 01/17/17 01/18/17 15:00 23:00 07:00 Intake Total 150 ml 2025 ml 1300 ml Output Total 250 ml 900 ml Balance 150 ml 1775 ml 400 ml Exam Free Text/Dictation Hemovac: 0cc Dressing dry Incision clean, dry, and intact without redness or drainage 5/5 Quadriceps, Tibialis Anterior, EHL, Gastroc, Soleus, Peroneals Normal sensation Palpable DT/PT, CR <2 sec No distal edema Results Result Diagram: 01/18/17 0805 01/18/17 0427 JEANNE CARMICHAEL PA-C Jan 18, 2017 10:33
--- NOTE | 2017-01-18 10:55 | CONS ---
Date/Time of Note Date/Time of Note DATE: 01/18/17 TIME: 10:53 Assessment/Plan Assessment/Plan Chief Complaint/Hosp Course 1. she is 2 days post op a R JESS revision , she is doing well . 2. continue current RX and PT 3. H/H is low , she has agreed to a 2 unit blood transfusion today. 4. Hyponatremia she has hyponatremia. I recommended that she decrease her fluid intake. I will change her IV to normal saline. I will recheck her labs in the morning. Problems: Consultation Date/Type/Reason Admit Date/Time Jan 16, 2017 at 10:58 24 HR Interval Summary Free Text/Dictation She has no complaints today. She is feeling well. Constitutional: improved, no complaints Exam/Review of Systems Vital Signs Vitals Vital Signs Date Time Temp Pulse Resp B/P Pulse Ox O2 Delivery O2 Flow Rate FiO2 01/18/17 07:55 97.6 70 18 138/64 97 01/17/17 04:00 Nasal Cannula 2.0 Intake and Output 01/17/17 01/17/17 01/18/17 15:00 23:00 07:00 Intake Total 150 ml 2025 ml 1300 ml Output Total 250 ml 900 ml Balance 150 ml 1775 ml 400 ml Exam Constitutional: alert, oriented, well developed Respiratory: clear to auscultation, normal air movement Cardiovascular: regular rate and rhythm Gastrointestinal: soft Musculoskeletal: nl extremities to inspection Results Result Diagram: 01/18/17 0805 01/18/17 0427 Results 24 hrs Laboratory Tests Test 01/18/17 04:27 01/18/17 08:05 Hemoglobin 6.9 *L 7.5 L Hematocrit 20.8 #L 22.2 L Sodium Level 128 L Potassium Level 4.4 Chloride Level 97 Carbon Dioxide Level 28 Anion Gap 7 L Blood Urea Nitrogen 18 Creatinine 0.88 Glucose Level 104 Calcium Level 9.0 Medications Medications Current Medications Miscellaneous Information 1 ea NOTE XX ; Start 01/16/17 at 13:30; Stop 01/20/17 at 13:29 Amlodipine Besylate (Norvasc) 2.5 mg DAILY PO Last administered on 01/18/17 09 :51; Admin Dose 2.5 MG; Start 01/17/17 at 09:00 Celecoxib (Celebrex) 200 mg DAILY PO Last administered on 01/18/17 09:47; Admin Dose 200 MG; Start 01/17/17 at 09:00 Tramadol HCl (Ultram) 50 mg Q6 PO Last administered on 01/17/17 18:12; Admin Dose 50 MG; Start 01/17/17 at 00:00; Stop 01/19/17 at 00:00 Oxycodone HCl (Roxicodone) 5 mg Q4H PRN PO PAIN LEVEL 1-3; Start 01/16/17 at 18 :00 Oxycodone HCl (Roxicodone) 10 mg Q4H PRN PO PAIN LEVEL 4-7; Start 01/16/17 at 18:00 Hydromorphone HCl 1 mg 1 mg Q3H PRN IV PAIN LEVEL 8-10; Start 01/16/17 at 18:00 Cefazolin Sodium/ Dextrose (Ancef 2 Gm/50 ml (Pmx)) 50 ml @ 100 mls/hr Q8H IVPB Last administered on 01/18/17 10:26; Admin Dose 100 MLS/HR; Start at 18:00; Stop 01/19/17 at 17:59 Ondansetron HCl (Zofran Inj) 4 mg Q6H PRN IV NAUSEA AND/OR VOMITING Last administered on 01/17/17 07:08; Admin Dose 4 MG; Start 01/16/17 at 18:00 Bisacodyl (Dulcolax Supp) 10 mg Q12H PRN [place] CONSTIPATION; Start 01/16/17 at 18: 00 Magnesium Hydroxide (Milk Of Mag) 30 ml BID PRN PO CONSTIPATION; Start at 18:00 Sodium Biphosphate/ Sodium Phosphate (Fleet Enema) 133 ml DAILY PRN [place] CONSTIPATION; Start 01/16/17 at 18:00 Docusate Sodium (Colace) 100 mg BID PO Last administered on 01/18/17 09:48; Admin Dose 100 MG; Start 01/16/17 at 21:00 Diphenhydramine HCl (Benadryl) 25 mg Q6H PRN PO PRURITUS; Start 01/16/17 at 18: 00 Aspirin (Ecotrin) 325 mg BID PO Last administered on 01/18/17 09:47; Admin Dose 325 MG; Start 01/17/17 at 09:00 Pregabalin (Lyrica) 50 mg BID PO ; Start 01/16/17 at 21:00 Pantoprazole (Protonix Tab) 40 mg BID@06,18 PO Last administered on 01/18/17 06:13; Admin Dose 40 MG; Start 01/16/17 at 18:00 Losartan Potassium 50 mg 50 mg DAILY PO Last administered on 01/18/17 09:50; Admin Dose 50 MG; Start 01/16/17 at 19:00 Sodium Chloride (NS) 1,000 ml @ 50 mls/hr Q20H IV ; Start 01/18/17 at 11:00 PASTORA YEPEZ MD Jan 18, 2017 10:55
[2017-01-18] MEDS: SOD CHLORIDE 0.9% 1,000 ML IV SCH ×2 (11:00→20:41)
[2017-01-18 11:58] LABS: IRON 15 ug/dl (35-150)
[2017-01-18 12:08] LABS: TOTAL IRON BINDING CAPACITY 210 ug/dl (241-421)
[2017-01-18 20:45] VITALS: BP 120/57; RESP 20
[2017-01-19] MEDS: traMADol 50 MG TAB PO SCH (00:24)
[2017-01-19] MEDS: CEFAZOLIN 2 GM/50 ML (PMX) 50 ML IVPB SCH ×2 (04:04→10:34)
[2017-01-19] MEDS: SOD CHLORIDE 0.9% 1,000 ML IV SCH (04:05)
[2017-01-19 05:24] LABS: ADD SCAN DIFF NO
[2017-01-19 05:51] LABS: BASOPHILS % 0.4 % (0.0-2.0); EOSINOPHILS # 0.2 10^3/ul (0.0-0.5); EOSINOPHILS % 3.6 % (0.0-7.0); HEMOGLOBIN 8.6 g/dl (12.0-16.0); LYMPHOCYTES # 0.7 10^3/ul (0.8-2.9); MEAN CORPUSCULAR HGB CONC 33.1 g/dl (32.0-37.0); MEAN CORPUSCULAR VOLUME 93.9 fl (82.0-101.0); MEAN PLATELET VOLUME 9.9 fl (7.4-10.4); MONOCYTE # 0.5 10^3/ul (0.3-0.9); MONOCYTES % 9.8 % (0.0-11.0); NEUTROPHIL # 3.7 10^3/ul (1.6-7.5); PLATELET COUNT 133 10^3/UL (140-415); RED BLOOD COUNT 2.77 10^6/ul (4.20-5.40); RED CELL DISTRIBUTION WIDTH 14.4 % (11.5-14.5)
[2017-01-19 06:01] LABS: ALBUMIN 2.6 g/dl (3.3-4.9); ALBUMIN/GLOBULIN RATIO 1.08; BILIRUBIN,INDIRECT 0.4 mg/dl (0-1.1); BILIRUBIN,TOTAL 0.4 mg/dl (0.2-1.3); CALCIUM 9.6 mg/dl (8.4-10.2); CREATININE 0.82 mg/dl (0.44-1.00); POTASSIUM 4.6 mmol/L (3.5-5.1)
[2017-01-19] MEDS: LEVOTHYROXINE 88 MCG TAB PO SCH (06:32)
[2017-01-19] MEDS: PANTOPRAZOLE (EC) 40 MG TAB PO SCH (06:32)
[2017-01-19 08:06] VITALS: BP 147/65; RESP 18
[2017-01-19] MEDS: LOSARTAN 50 MG TAB PO SCH (08:06)
[2017-01-19] MEDS: AMLODIPINE 2.5 MG TAB PO SCH (08:06)
[2017-01-19] MEDS: ASPIRIN (EC) 325 MG TAB PO SCH (08:06)
[2017-01-19] MEDS: DOCUSATE SODIUM 100 MG CAP PO SCH (08:06)
[2017-01-19] MEDS: CELECOXIB 200 MG CAP PO SCH (08:06)
--- NOTE | 2017-01-19 08:40 | PN ---
Date/Time of Note Date/Time of Note DATE: 01/19/17 TIME: 08:37 Assessment/Plan Lines/Catheters IV Catheter Type (from Nrsg): Peripheral IV Burch in Place (from Nrsg): No Assessment/Plan Assessment/Plan Stable POD #3, s/p revision right JESS -d/c abx after final culture results -pain meds as needed -ASA/SCDs -OOB with PT -continue posterior hip precautions -dressing changed -stable for transfer to ARU today Subjective 24 Hr Interval Summary No acute overnight events. Feeling better overall after receiving blood transfusion. Was accepted to ARU . Stable for transfer to ARU today. Exam/Review of Systems Vital Signs Vitals Vital Signs Date Time Temp Pulse Resp B/P Pulse Ox O2 Delivery O2 Flow Rate FiO2 01/19/17 08:06 97.8 60 18 147/65 100 01/17/17 04:00 Nasal Cannula 2.0 Intake and Output 01/18/17 01/18/17 01/19/17 15:00 23:00 07:00 Intake Total 1830 ml 775 ml Output Total 1100 ml 900 ml Balance 730 ml -125 ml Exam Free Text/Dictation Dressing dry Incision clean, dry, and intact without redness or drainage 5/5 Quadriceps, Tibialis Anterior, EHL, Gastroc, Soleus, Peroneals Normal sensation Palpable DT/PT, CR <2 sec No distal edema Results Result Diagram: 01/19/17 0453 01/19/17 0450 JEANNE CARMICHAEL PA-C Jan 19, 2017 08:40
[2017-01-19] MEDS: PREGABALIN 50 MG CAP PO SCH (09:00)
--- NOTE | 2017-01-19 10:23 | CONS ---
Date/Time of Note Date/Time of Note DATE: 01/19/17 TIME: 10:20 Assessment/Plan Assessment/Plan Chief Complaint/Hosp Course 1. she is 3 days post op a R JESS revision , she is doing well . 2. continue current RX and PT 3. H/H was low and is higher today. She did receive a 2 unit blood transfusion yesterday. 4. Hyponatremia , which has corrected today. 5. She is going to be transferred to acute rehabilitation unit today. I will follow her there. Problems: Consultation Date/Type/Reason Admit Date/Time Jan 16, 2017 at 10:58 24 HR Interval Summary Free Text/Dictation She is overall doing better. She did get itchy unit blood transfusion yesterday. Constitutional: improved, no complaints Exam/Review of Systems Vital Signs Vitals Vital Signs Date Time Temp Pulse Resp B/P Pulse Ox O2 Delivery O2 Flow Rate FiO2 01/19/17 08:06 97.8 60 18 147/65 100 01/17/17 04:00 Nasal Cannula 2.0 Intake and Output 01/18/17 01/18/17 01/19/17 15:00 23:00 07:00 Intake Total 1830 ml 775 ml Output Total 1100 ml 900 ml Balance 730 ml -125 ml Exam Constitutional: alert, oriented, well developed Respiratory: clear to auscultation, normal air movement Cardiovascular: regular rate and rhythm Gastrointestinal: soft Musculoskeletal: nl extremities to inspection Results Result Diagram: 01/19/17 0453 01/19/17 0450 Results 24 hrs Laboratory Tests Test 01/19/17 04:50 01/19/17 04:53 Sodium Level 134 L Potassium Level 4.6 Chloride Level 105 Carbon Dioxide Level 30 Anion Gap 4 L Blood Urea Nitrogen 16 Creatinine 0.82 Glucose Level 87 Calcium Level 9.6 Total Bilirubin 0.4 Direct Bilirubin 0.00 Indirect Bilirubin 0.4 Aspartate Amino Transf (AST/SGOT) 32 Alanine Aminotransferase (ALT/SGPT) 23 Alkaline Phosphatase 44 Total Protein 5.0 L Albumin 2.6 L Globulin 2.40 Albumin/Globulin Ratio 1.08 White Blood Count 5.0 Red Blood Count 2.77 L Hemoglobin 8.6 L Hematocrit 26.0 L Mean Corpuscular Volume 93.9 Mean Corpuscular Hemoglobin 31.0 Mean Corpuscular Hemoglobin Concent 33.1 Red Cell Distribution Width 14.4 Platelet Count 133 L Mean Platelet Volume 9.9 Neutrophils % 73.0 Lymphocytes % 13.0 L Monocytes % 9.8 Eosinophils % 3.6 Basophils % 0.4 Nucleated Red Blood Cells % 0.0 Neutrophils # 3.7 Lymphocytes # 0.7 L Monocytes # 0.5 Eosinophils # 0.2 Basophils # 0.0 Nucleated Red Blood Cells # 0.0 Medications Medications Current Medications Miscellaneous Information 1 ea NOTE XX ; Start 01/16/17 at 13:30; Stop 01/20/17 at 13:29 Amlodipine Besylate (Norvasc) 2.5 mg DAILY PO Last administered on 01/19/17 08 :06; Admin Dose 2.5 MG; Start 01/17/17 at 09:00 Celecoxib (Celebrex) 200 mg DAILY PO Last administered on 01/19/17 08:06; Admin Dose 200 MG; Start 01/17/17 at 09:00 Oxycodone HCl (Roxicodone) 5 mg Q4H PRN PO PAIN LEVEL 1-3; Start 01/16/17 at 18 :00 Oxycodone HCl (Roxicodone) 10 mg Q4H PRN PO PAIN LEVEL 4-7; Start 01/16/17 at 18:00 Hydromorphone HCl 1 mg 1 mg Q3H PRN IV PAIN LEVEL 8-10; Start 01/16/17 at 18:00 Cefazolin Sodium/ Dextrose (Ancef 2 Gm/50 ml (Pmx)) 50 ml @ 100 mls/hr Q8H IVPB Last administered on 01/19/17 04:04; Admin Dose 100 MLS/HR; Start at 18:00; Stop 01/19/17 at 17:59 Ondansetron HCl (Zofran Inj) 4 mg Q6H PRN IV NAUSEA AND/OR VOMITING Last administered on 01/17/17 07:08; Admin Dose 4 MG; Start 01/16/17 at 18:00 Bisacodyl (Dulcolax Supp) 10 mg Q12H PRN [place] CONSTIPATION; Start 01/16/17 at 18: 00 Magnesium Hydroxide (Milk Of Mag) 30 ml BID PRN PO CONSTIPATION; Start at 18:00 Sodium Biphosphate/ Sodium Phosphate (Fleet Enema) 133 ml DAILY PRN [place] CONSTIPATION; Start 01/16/17 at 18:00 Docusate Sodium (Colace) 100 mg BID PO Last administered on 01/19/17 08:06; Admin Dose 100 MG; Start 01/16/17 at 21:00 Diphenhydramine HCl (Benadryl) 25 mg Q6H PRN PO PRURITUS; Start 01/16/17 at 18: 00 Aspirin (Ecotrin) 325 mg BID PO Last administered on 01/19/17 08:06; Admin Dose 325 MG; Start 01/17/17 at 09:00 Pregabalin (Lyrica) 50 mg BID PO ; Start 01/16/17 at 21:00 Pantoprazole (Protonix Tab) 40 mg BID@06,18 PO Last administered on 01/19/17 06:32; Admin Dose 40 MG; Start 01/16/17 at 18:00 Losartan Potassium 50 mg 50 mg DAILY PO Last administered on 01/19/17 08:06; Admin Dose 50 MG; Start 01/16/17 at 19:00 Sodium Chloride (NS) 1,000 ml @ 50 mls/hr Q20H IV Last administered on 20:41; Admin Dose 50 MLS/HR; Start 01/18/17 at 11:00 PASTORA YEPEZ MD Jan 19, 2017 10:22
--- NOTE | 2017-01-19 18:28 | DS ---
DATE OF ADMISSION: 01/16/2017 DATE OF DISCHARGE: 01/19/2017 CONDITION UPON DISCHARGE: Stable. ADMITTING DIAGNOSIS: Mechanical complications right [id number] total hip arthroplasty. DISCHARGE DIAGNOSIS: Status post revision right total hip arthroplasty. PROCEDURE PERFORMED: Revision right total hip arthroplasty. HOSPITAL COURSE: This is a 71-year-old female who was seen in the clinic initially complaining of hip pain. She had previously undergone a metal on metal right total hip arthroplasty. Serum chromium levels were obtained and demonstrated the levels to be elevated and it is thought she would benefit from revising the right total hip arthroplasty. On 01/16/2017, the patient was admitted and taken to operating room where she underwent a revision right total hip arthroplasty. There were no intraoperative complications. The patient tolerated the procedure well. She was taken to the recovery room in stable condition. Pain was well controlled with oral pain medication. She was started on aspirin and SCDs for DVT prophylaxis. She remained hemodynamically stable and neurovascularly intact throughout her hospital stay. She began physical therapy on postoperative day 1 and was evaluated by acute rehab on postoperative day 2. She was deemed a good candidate and transferred on postoperative day #3 to acute rehab unit at [facility]. Prior to transfer, the incision was inspected and noted to be clean, dry and intact. Dressing changes were done prior to the patient being transferred to ARU. LABORATORY ANALYSIS: Hemoglobin 8.6, hematocrit 26.0, chemistry panel was within normal limits. The patient did have a low H and H postoperatively and required blood transfusion of 2 units PRBCs. DISCHARGE MEDICATIONS: 1. [place] 5/325 2. Tramadol 50 3. Protonix 40 mg. 4. Aspirin 325 mg. 5. In addition, the patient is to resume all of her normal home medications. DISCHARGE INSTRUCTIONS: The patient will be transferred to ARU in stable condition. She is to resume a normal diet. Activities include weightbearing as tolerated on the right lower extremity. She is to continue with posterior hip precautions. She will begin physical therapy at ARU and will be transferred. Upon discharge, she will begin physical therapy with home health. She will transfer with the medications noted above and to resume all of her normal home medications. She is to call the office or go to the emergency room for any concerns including increased redness, swelling, drainage, fever or any concerns regarding the operation or site of incision. FOLLOWUP: The patient is to followup in the office on 01/26/2017. Dictated By: JEANNE GOMES for SIRENA BYRD/IRWIN Conf#: [id number] DID#: [id number] MTDD
== END 2017-01-19 12:05 | DRG 467 ==
LOC: REC 10:58 → EDSTATUS 12:20 → MS1 19:50
PROVIDERS: ADMIT Orthopaedic Surgery; ATTEND Orthopaedic Surgery
PROC: 0SP909Z Removal of Liner from Right Hip Joint, Open Approach (ICD-10-PCS; 2017-01-16)
PROC: 0SUA09Z Supplement Right Hip Joint, Acetabular Surface with Liner, Open Approach (ICD-10-PCS; 2017-01-16)
PROC: 0SP90JZ Removal of Synthetic Substitute from Right Hip Joint, Open Approach (ICD-10-PCS; 2017-01-16)
PROC: 0SR904A Replacement of Right Hip Joint with Ceramic on Polyethylene Synthetic Substitute, Uncemented, Open Approach (ICD-10-PCS; principal; 2017-01-16 14:30)
PROC: 30233N1 Transfusion of Nonautologous Red Blood Cells into Peripheral Vein, Percutaneous Approach (ICD-10-PCS; 2017-01-18)
DX: T84.090A Other mechanical complication of internal right hip prosthesis, initial encounter (principal); D62 Acute posthemorrhagic anemia; I34.1 Nonrheumatic mitral (valve) prolapse; E87.1 Hypo-osmolality and hyponatremia; Z96.643 Presence of artificial hip joint, bilateral; I10 Essential (primary) hypertension; E03.9 Hypothyroidism, unspecified; M15.9 Polyosteoarthritis, unspecified; M81.0 Age-related osteoporosis without current pathological fracture; K44.9 Diaphragmatic hernia without obstruction or gangrene; Z96.652 Presence of left artificial knee joint; T84.84XA Pain due to internal orthopedic prosthetic devices, implants and grafts, initial encounter; Y83.8 Other surgical procedures as the cause of abnormal reaction of the patient, or of later complication, without mention of misadventure at the time of the procedure; Y92.019 Unspecified place in single-family (private) house as the place of occurrence of the external cause; Y79.2 Prosthetic and other implants, materials and accessory orthopedic devices associated with adverse incidents; Z79.82 Long term (current) use of aspirin; Z90.49 Acquired absence of other specified parts of digestive tract; Z90.710 Acquired absence of both cervix and uterus
CPT/HCPCS: 36430; 72170; 73500; 73530; 80048; 80053; 81001; 81003; 82728; 83540; 83735; 84100; 85014; 85018; 85025; 86850; 86900; 86901; 86920; 87070; 87075; 87081; 87086; 87102; 87116; 88300; 88304; 97110; 97116; 97530; C1713; C9290; J0131; J0171; J0690; J0735; J1100; J1885; J2250; J2274; J2405; J2710; J2765; J3010; J3370; J3475; J7030; J7120; P9016; P9045

== ENCOUNTER 2017-01-18 17:28 | Inpatient (IN) | payer MEDICARE, BC ==
[~2017-01-18] VITALS: Ht 165.1 cm; Wt 74.2 kg
[~2017-01-18 17:28] MED LIST changes: -ETOMIDATE 20 MG INJ ONE; -LIDOCAINE 2% (SDV) 5 ML INJ ONE
[2017-01-19 12:20] VITALS: BP 169/72; PULSE 68; RESP 20
[2017-01-19 13:54] LABS: ADD UMIC NO; URINE BILIRUBIN (Dip) NEGATIVE (NEGATIVE); URINE BLOOD (Dip) NEGATIVE (NEGATIVE); URINE COLOR LT. YELLOW (YELLOW); URINE GLUCOSE (Dip) NEGATIVE (NEGATIVE); URINE KETONES (Dip) NEGATIVE (NEGATIVE); URINE LEUKOCYTE ESTERASE (Dip) NEGATIVE (NEGATIVE); URINE NITRITE (Dip) NEGATIVE (NEGATIVE); URINE TOTAL PROTEIN (Dip) NEGATIVE (NEGATIVE); URINE UROBILINOGEN (Dip) 0.2 E.U./dL (0.1-1.0)
[2017-01-19] MEDS ORDERED: MAGNESIUM HYDROXIDE 30ML CUP PO PRN (14:30)
[2017-01-19] MEDS ORDERED: HYDROCODONE/APAP (5/325) TAB PO PRN (14:30)
[2017-01-19] MEDS ORDERED: BISACODYL 10 MG SUPP PR PRN (14:30)
[2017-01-19] MEDS ORDERED: DIPHENHYDRAMINE 25 MG CAP PO PRN (14:30)
[2017-01-19] MEDS ORDERED: PANTOPRAZOLE (EC) 40 MG TAB PO SCH (18:00)
[2017-01-19 20:00] VITALS: BP 154/62; RESP 18
[2017-01-19] MEDS: DOCUSATE SODIUM 100 MG CAP PO SCH (20:30)
[2017-01-19] MEDS: ASPIRIN (EC) 325 MG TAB PO SCH (20:30)
[2017-01-19] MEDS: PREGABALIN 25 MG CAP PO SCH (20:41)
[2017-01-20] MEDS: PANTOPRAZOLE (EC) 40 MG TAB PO SCH ×2 (06:20→06:31)
[2017-01-20] MEDS: LEVOTHYROXINE 88 MCG TAB PO SCH (06:27)
[2017-01-20 07:35] LABS: ADD SCAN DIFF NO
[2017-01-20 07:43] LABS: ABNORMAL IP MESSAGE 1; BASOPHILS % 0.4 % (0.0-2.0); EOSINOPHILS # 0.2 10^3/ul (0.0-0.5); EOSINOPHILS % 3.6 % (0.0-7.0); HEMATOCRIT 27.7 % (37.0-47.0); HEMOGLOBIN 9.1 g/dl (12.0-16.0); LYMPHOCYTES # 0.5 10^3/ul (0.8-2.9); LYMPHOCYTES % 11.1 % (15.0-51.0); MEAN CORPUSCULAR HEMOGLOBIN 31.3 pg (29.0-33.0); MEAN CORPUSCULAR HGB CONC 32.9 g/dl (32.0-37.0); MEAN CORPUSCULAR VOLUME 95.2 fl (82.0-101.0); MEAN PLATELET VOLUME 9.8 fl (7.4-10.4); MONOCYTE # 0.4 10^3/ul (0.3-0.9); MONOCYTES % 7.8 % (0.0-11.0); NEUTROPHIL # 3.7 10^3/ul (1.6-7.5); NEUTROPHILS % 76.7 % (39.0-77.0); PLATELET COUNT 140 10^3/UL (140-415); RED BLOOD COUNT 2.91 10^6/ul (4.20-5.40); WHITE BLOOD COUNT 4.8 10^3/ul (4.8-10.8)
[2017-01-20 08:17] LABS: ALBUMIN 2.8 g/dl (3.3-4.9)
[2017-01-20 08:18] LABS: POTASSIUM 4.3 mmol/L (3.5-5.1)
[2017-01-20 08:20] LABS: ALBUMIN/GLOBULIN RATIO 1.03; BILIRUBIN,INDIRECT 0.7 mg/dl (0-1.1); BILIRUBIN,TOTAL 0.7 mg/dl (0.2-1.3); CREATININE 0.66 mg/dl (0.44-1.00); TOTAL PROTEIN 5.5 g/dl (6.1-8.1)
[2017-01-20 08:21] LABS: CALCIUM 9.4 mg/dl (8.4-10.2)
[2017-01-20] MEDS: ASPIRIN (EC) 325 MG TAB PO SCH ×2 (08:51→20:06)
[2017-01-20] MEDS: DOCUSATE SODIUM 100 MG CAP PO SCH ×2 (08:51→20:06)
[2017-01-20] MEDS: AMLODIPINE 2.5 MG TAB PO SCH (08:52)
[2017-01-20] MEDS: PREGABALIN 25 MG CAP PO SCH ×2 (08:53→20:07)
[2017-01-20] MEDS ORDERED: LOSARTAN 50 MG TAB PO SCH (09:00)
--- NOTE | 2017-01-20 10:17 | CONS ---
DATE OF ADMISSION: 01/19/2017 DATE OF CONSULTATION: 01/20/2017 TYPE OF CONSULTATION: Rehabilitation Post-Admission Physician Evaluation REHABILITATION IMPAIRMENT CATEGORY: Other orthopedic injury due to mechanical complications with revision of right total hip replacement. ACTIVE COMORBIDITIES: 1. Osteoarthritis affecting multiple joints with a history of right total hip replacement, left total hip arthroplasty, left total knee arthroplasty. 2. Acute pain syndrome. 3. Severe anemia requiring transfusion. 4. Hyponatremia. 5. Hypertension. 6. Hypothyroidism. 7. Hiatal hernia. 8. Mitral valve prolapse. 9. Impairments in self-care and mobility. HISTORY OF PRESENT ILLNESS: The patient is a pleasant 71-year-old female with a history of osteoarthritis affecting multiple joints with a history of multiple orthopedic surgeries, who was admitted for revision of right total hip arthroplasty. The patient underwent revision with hospital course notable for severe anemia requiring transfusion in addition to significant hyponatremia. The patient has been noted to have significant impairments in self-care and mobility as compared to baseline, and has been cleared to transfer to the rehabilitation unit for comprehensive interdisciplinary rehab care. FUNCTIONAL HISTORY: Prior to recent events, she was independent in self-care tasks and mobility. Currently, the patient requires moderate assist for self- care and mobility tasks. I have reviewed the preadmission screen and the patient's current functional status is consistent with the preadmission screen. SOCIAL HISTORY: The patient lives at home and hopes to return home upon discharge. PAST MEDICAL HISTORY: 1. Osteoarthritis. 2. Hypertension. 3. Hypothyroidism. 4. History of mitral valve prolapse. 5. Hiatal hernia. 6. History of right total hip arthroplasty. 7. History of left total hip arthroplasty. 8. History of left total knee arthroplasty. CURRENT MEDICATIONS: 1. Norvasc 2.5 mg p.o. daily. 2. Ecotrin 325 p.o. b.i.d. 3. Colace 100 mg b.i.d. 4. Synthroid 88 mcg p.o. q.a.m. 5. Cozaar 50 mg p.o. daily. 6. Lyrica 50 mg p.o. b.i.d. 7. Protonix 40 mg b.i.d. ALLERGIES: XARELTO. PHYSICAL EXAMINATION: VITAL SIGNS: The patient is currently afebrile with stable vital signs. HEENT: The extraocular motions are intact. Oropharynx is clear. NECK: Supple. LUNGS: Clear anteriorly. CARDIAC: S1, S2. ABDOMEN: Soft, nontender, positive bowel sounds. NEUROLOGIC: She is awake and alert and oriented x3. She will follow simple 1- step commands. Cranial nerves are grossly intact. She has good strength in bilateral upper extremity and the left lower extremity. Dorsiflexion and plantar flexion intact on the right. PLAN: The patient has been admitted for comprehensive interdisciplinary acute rehab and is anticipated to tolerate 3 hours of daily therapy in divided doses for at least 5/7 days a week. The treatment plan will include: 1. Physical therapy to focus on bed mobility, transfers, and household ambulation with the goal of having the patient reach a standby assist level. 2. Occupational therapy to focus on hygiene, grooming, dressing, bathing, and toileting activities with the goal of having patient reach standby assist level. 3. Rehabilitation nursing for carryover of therapeutic interventions, the goal of continent of bowel and bladder, and the goal of pain adequately managed on oral medications. ESTIMATED LENGTH OF STAY: 10 days. DISPOSITION GOAL: Home. Rehabilitation Barrier: Pain Intervention for barrier: Interdisciplinary rehab I acknowledge that I performed a full physical examination on this patient within 24 hours of admission to the rehabilitation unit. I believe the patient is a good candidate for comprehensive interdisciplinary rehab care and is anticipated to make reasonable goals in a reasonable period of time as outlined above. Dictated By: IBIS HERZOG/IRWIN Conf#: [id number] DID#: [id number] MTDD
--- NOTE | 2017-01-20 13:26 | CONS ---
Date/Time of Note Date/Time of Note DATE: 01/20/17 TIME: 13:16 Consult Date/Type/Reason Admit Date/Time Jan 19, 2017 at 12:10 Initial Consult Date 01/16/2017 Type of Consultation: Medicine Reason for Consultation HTN, hypothyroidism, anemia Subjective Patient doing well. Did well with PT this am. Reports pain is adequately controlled. No fevers, chills, nausea, vomiting, diarrhea, constipation. Does endorse acute edema in R knee, upper thigh that developed over last 2 hours. Objective Vital Signs Date Time Temp Pulse Resp B/P Pulse Ox O2 Delivery O2 Flow Rate FiO2 01/19/17 20:00 98.3 62 18 154/62 97 01/19/17 12:20 Room Air Intake and Output 01/19/17 01/19/17 01/20/17 15:00 23:00 07:00 Intake Total 360 ml 360 ml 150 ml Output Total 400 ml 400 ml Balance -40 ml -40 ml 150 ml Exam Gen-NAD, alert and oriented to person, time, place, and situation HEENT-op clear, mmm, no scleral icterus CV-murmur at base, rrr pulm-ctab, no w/r/r ext: incision site on RLE c/d/i. No surrounding cellulitis or purulence appreciated. Notable edema of RLE extending down distally to knee Results/Medications Result Diagram: 01/20/17 0710 01/20/17 0710 Results 24 hrs Laboratory Tests Test 01/20/17 07:10 White Blood Count 4.8 Red Blood Count 2.91 L Hemoglobin 9.1 L Hematocrit 27.7 L Mean Corpuscular Volume 95.2 Mean Corpuscular Hemoglobin 31.3 Mean Corpuscular Hemoglobin Concent 32.9 Red Cell Distribution Width 14.0 Platelet Count 140 Mean Platelet Volume 9.8 Neutrophils % 76.7 Lymphocytes % 11.1 L Monocytes % 7.8 Eosinophils % 3.6 Basophils % 0.4 Nucleated Red Blood Cells % 0.0 Neutrophils # 3.7 Lymphocytes # 0.5 L Monocytes # 0.4 Eosinophils # 0.2 Basophils # 0.0 Nucleated Red Blood Cells # 0.0 Sodium Level 137 Potassium Level 4.3 Chloride Level 100 Carbon Dioxide Level 31 Anion Gap 10 # Blood Urea Nitrogen 14 Creatinine 0.66 Glucose Level 90 Calcium Level 9.4 Total Bilirubin 0.7 Direct Bilirubin 0.00 Indirect Bilirubin 0.7 Aspartate Amino Transf (AST/SGOT) 34 Alanine Aminotransferase (ALT/SGPT) 20 Alkaline Phosphatase 46 Total Protein 5.5 L Albumin 2.8 L Globulin 2.70 Albumin/Globulin Ratio 1.03 Medications Current Medications Amlodipine Besylate (Norvasc) 2.5 mg DAILY PO Last administered on 01/20/17 08 :52; Admin Dose 2.5 MG; Start 01/20/17 at 09:00 Bisacodyl (Dulcolax Supp) 10 mg Q12H PRN [place] CONSTIPATION; Start 01/19/17 at 14: 30 Magnesium Hydroxide (Milk Of Mag) 30 ml BID PRN PO CONSTIPATION; Start at 14:30 Docusate Sodium (Colace) 100 mg BID PO Last administered on 01/20/17 08:51; Admin Dose 100 MG; Start 01/19/17 at 21:00 Diphenhydramine HCl (Benadryl) 25 mg Q6H PRN PO PRURITUS; Start 01/19/17 at 14: 30 Aspirin (Ecotrin) 325 mg BID PO Last administered on 01/20/17 08:51; Admin Dose 325 MG; Start 01/19/17 at 21:00 Pregabalin (Lyrica) 25 mg BID PO ; Start 01/19/17 at 21:00 Losartan Potassium (Cozaar) 50 mg DAILY PO Last administered on 01/20/17 08:51 ; Admin Dose 50 MG; Start 01/20/17 at 09:00 Acetaminophen/ Hydrocodone Bitart (Centuria (5/325)) 1 tab Q4H PRN PO MODERATE PAIN; Start 01/19/17 at 14:30 Acetaminophen/ Hydrocodone Bitart (Centuria (5/325)) 2 tab Q4H PRN PO MODERATE PAIN; Start 01/19/17 at 14:30 Assessment/Plan Chief Complaint/Hosp Course 71 y/o female pmh HTN, Hpothyroidism s/p revision of R hip 01/16. Course c/b anemia s/p 2 u prbc. Problems: Additional Assessment/Plan A/P: #s/p R hip replacement-not especially concerned about swelling. No e/o infection. No pain or profound limitation in ROM. Discussed with Dr. William. Strange that developed acutely over last 2 hours, surgery was 01/16. This is my first day seeing the patient so could not gauge how much edema has progressed from yesterday. -ASA 325 BID for DVT ppx -SCD -PT/OT -judicious pain management -will rule out DVT with stat doppler, not likely though. #anemia-improved. Was likely due to surgical blood loss. s/p 2 u PRBC -ctm #HTN -norvasc 2.5, losartan 50. Can uptitrate if BP remains above goal. #hypothyroidism -synthroid ZA GALLAGHER MD Jan 20, 2017 13:26
[2017-01-20 16:00] VITALS: BP 170/75; PULSE 76; RESP 18
--- NOTE | 2017-01-20 17:15 | RADRPT ---
PROCEDURE: Ultrasound of the right lower extremity venous system. CLINICAL INDICATION: Right leg pain and swelling, deep venous thrombosis TECHNIQUE: Caro scale with and without compression, color doppler, spectral doppler of the venous system of the right lower extremity was performed. Venous augmentation maneuvers were utilized. COMPARISON: No prior studies are available for comparison. FINDINGS: Common femoral vein: Patent. Femoral vein: Patent. Popliteal vein: Patent. Calf veins: Patent. No soft tissue abnormalities are identified. IMPRESSION: No evidence of a deep vein thrombosis within the right lower extremity. RPTAT: AADD .Solomon Hammonds MD, MD Date Time Electronically viewed and signed by .Solomon Hammonds MD, on 01/20/2017 17:15 .B/
[2017-01-20 18:11] VITALS: BP 160/71; PULSE 71; RESP 18
[2017-01-20] MEDS ORDERED: LOSARTAN 50 MG TAB PO ONE (18:30)
[2017-01-20 20:07] VITALS: BP 147/68; RESP 20
[2017-01-21] MEDS: PANTOPRAZOLE (EC) 40 MG TAB PO SCH (06:41)
[2017-01-21] MEDS: LEVOTHYROXINE 88 MCG TAB PO SCH (06:41)
[2017-01-21 08:00] VITALS: BP 160/69; PULSE 60; RESP 20
[2017-01-21] MEDS: DOCUSATE SODIUM 100 MG CAP PO SCH ×2 (08:50→20:17)
[2017-01-21] MEDS: AMLODIPINE 2.5 MG TAB PO SCH (08:50)
[2017-01-21] MEDS: ASPIRIN (EC) 325 MG TAB PO SCH ×2 (08:50→20:17)
[2017-01-21] MEDS: PREGABALIN 25 MG CAP PO SCH ×2 (08:53→21:00)
[2017-01-21] MEDS: LOSARTAN 50 MG TAB PO SCH (08:53)
--- NOTE | 2017-01-21 12:34 | CONS ---
Date/Time of Note Date/Time of Note DATE: 01/21/17 TIME: 12:31 Consult Date/Type/Reason Admit Date/Time Jan 19, 2017 at 12:10 Initial Consult Date 01/16/2017 Type of Consultation: Medicine Reason for Consultation HTN, hypothyroidism, anemia Subjective Patient doing well today. Had BM. Denies chest pain, sob, nausea, vomiting, diarrhea, constipation, fevers, chills, abdominal pain, dysuria. Doppler negative yesterday. Swelling in RLE improved per patient. Pain well controlled. Objective Vital Signs Date Time Temp Pulse Resp B/P Pulse Ox O2 Delivery O2 Flow Rate FiO2 01/20/17 20:07 97.5 60 20 147/68 92 01/20/17 18:11 Room Air Intake and Output 01/20/17 01/20/17 01/21/17 15:00 23:00 07:00 Intake Total 500 ml 240 ml Output Total 950 ml 200 ml Balance -950 ml 500 ml 40 ml Exam Gen-NAD, alert and oriented to person, time, place, and situation HEENT-op clear, mmm, no scleral icterus CV-murmur at base, rrr pulm-ctab, no w/r/r ext: Improved edema of RLE extending down distally to knee Results/Medications Result Diagram: 01/20/17 0710 01/20/17 0710 Medications Current Medications Amlodipine Besylate (Norvasc) 2.5 mg DAILY PO Last administered on 01/21/17 08 :50; Admin Dose 2.5 MG; Start 01/20/17 at 09:00 Bisacodyl (Dulcolax Supp) 10 mg Q12H PRN [place] CONSTIPATION; Start 01/19/17 at 14: 30 Magnesium Hydroxide (Milk Of Mag) 30 ml BID PRN PO CONSTIPATION; Start at 14:30 Docusate Sodium (Colace) 100 mg BID PO Last administered on 01/21/17 08:50; Admin Dose 100 MG; Start 01/19/17 at 21:00 Diphenhydramine HCl (Benadryl) 25 mg Q6H PRN PO PRURITUS; Start 01/19/17 at 14: 30 Aspirin (Ecotrin) 325 mg BID PO Last administered on 01/21/17 08:50; Admin Dose 325 MG; Start 01/19/17 at 21:00 Pregabalin (Lyrica) 25 mg BID PO ; Start 01/19/17 at 21:00 Acetaminophen/ Hydrocodone Bitart ([place] (5/325)) 1 tab Q4H PRN PO MODERATE PAIN; Start 01/19/17 at 14:30 Acetaminophen/ Hydrocodone Bitart ([place] (5/325)) 2 tab Q4H PRN PO MODERATE PAIN; Start 01/19/17 at 14:30 Losartan Potassium (Cozaar) 100 mg DAILY PO Last administered on 01/21/17t 08: 53; Admin Dose 100 MG; Start 01/21/17 at 09:00 Assessment/Plan Chief Complaint/Hosp Course 71 y/o female pmh HTN, Hpothyroidism s/p revision of R hip 01/16. Course c/b anemia s/p 2 u prbc. Problems: Additional Assessment/Plan #s/p R hip replacement-swelling improved, duplex negative -ASA 325 BID for DVT ppx -SCD -PT/OT -judicious pain management #anemia-improved. Was likely due to surgical blood loss. s/p 2 u PRBC -ctm #HTN-improved -norvasc 2.5, losartan 50 increased to 100mg po qday. #hypothyroidism -synthroid ZA GALLAGHER MD Jan 21, 2017 12:34
[2017-01-21 19:25] VITALS: BP 149/63; RESP 20
[2017-01-22] MEDS: LEVOTHYROXINE 88 MCG TAB PO SCH (06:26)
[2017-01-22] MEDS: PANTOPRAZOLE (EC) 40 MG TAB PO SCH (06:26)
[2017-01-22 07:30] VITALS: BP 169/70; RESP 18
[2017-01-22] MEDS: ASPIRIN (EC) 325 MG TAB PO SCH ×2 (08:01→20:44)
[2017-01-22] MEDS: LOSARTAN 50 MG TAB PO SCH (08:02)
[2017-01-22] MEDS: DOCUSATE SODIUM 100 MG CAP PO SCH ×2 (08:02→20:44)
[2017-01-22] MEDS: AMLODIPINE 2.5 MG TAB PO SCH ×2 (08:02→20:46)
[2017-01-22] MEDS: PREGABALIN 25 MG CAP PO SCH ×2 (08:03→20:48)
--- NOTE | 2017-01-22 08:52 | PN ---
Date/Time of Note Date/Time of Note DATE: 01/22/17 TIME: 08:50 Assessment/Plan Lines/Catheters Burch in Place (from Nrsg): No Assessment/Plan Assessment/Plan POD #6, s/p revision right JESS -pain meds as needed -ASA/SCDs for DVT prophylaxis -OOB with PT -dressing changed -planning on going home tomorrow -follow up in the office on 01/26/17 as previously scheduled Subjective 24 Hr Interval Summary Making good progress in ARU. Pain improving. Had doppler done due to swelling which was negative for DVT. VSS, afebrile. Planning to go home tomorrow. Exam/Review of Systems Vital Signs Vitals Vital Signs Date Time Temp Pulse Resp B/P Pulse Ox O2 Delivery O2 Flow Rate FiO2 01/22/17 07:30 98.5 56 18 169/70 99 01/21/17 08:00 Room Air Intake and Output 01/21/17 01/21/17 01/22/17 14:59 22:59 06:59 Intake Total 560 ml 550 ml Output Total 800 ml Balance -240 ml 550 ml Exam Free Text/Dictation Dressing dry Incision clean, dry, and intact without redness or drainage 5/5 Quadriceps, Tibialis Anterior, EHL, Gastroc, Soleus, Peroneals Normal sensation Palpable DT/PT, CR <2 sec No distal edema Results Result Diagram: 01/20/17 0710 01/20/17 0710 JEANNE CARMICHAEL PA-C Jan 22, 2017 08:52
--- NOTE | 2017-01-22 09:40 | CONS ---
Date/Time of Note Date/Time of Note DATE: 01/22/17 TIME: 09:39 Consult Date/Type/Reason Admit Date/Time Jan 19, 2017 at 12:10 Initial Consult Date Type of Consultation: Medicine Objective Vital Signs Date Time Temp Pulse Resp B/P Pulse Ox O2 Delivery O2 Flow Rate FiO2 01/22/17 07:30 98.5 56 18 169/70 99 01/21/17 08:00 Room Air Intake and Output 01/21/17 01/21/17 01/22/17 15:00 23:00 07:00 Intake Total 560 ml 550 ml Output Total 800 ml Balance -240 ml 550 ml INTERDISCIPLINARY TEAM CONFERENCE BOWEL- Cont BLADDER-Cont SKIN- intact OT- DRESSING-min BATHING-min TOILETING-min PT- BED MOBILITY-sba TRANSFERS-sba AMBULATION-sba 150 feet A/P- Interdisciplinary team conference held today. Please see interdisciplinary sheet. Working toward d.c. on 01/26 with post discharge follow up of physical therapy, occupational therapy. Results/Medications Result Diagram: 01/20/17 0710 01/20/17 0710 Medications Current Medications Amlodipine Besylate (Norvasc) 2.5 mg DAILY PO Last administered on 01/22/17 08 :02; Admin Dose 2.5 MG; Start 01/20/17 at 09:00 Bisacodyl (Dulcolax Supp) 10 mg Q12H PRN [place] CONSTIPATION; Start 01/19/17 at 14: 30 Magnesium Hydroxide (Milk Of Mag) 30 ml BID PRN PO CONSTIPATION; Start at 14:30 Docusate Sodium (Colace) 100 mg BID PO Last administered on 01/22/17 08:02; Admin Dose 100 MG; Start 01/19/17 at 21:00 Diphenhydramine HCl (Benadryl) 25 mg Q6H PRN PO PRURITUS; Start 01/19/17 at 14: 30 Aspirin (Ecotrin) 325 mg BID PO Last administered on 01/22/17 08:01; Admin Dose 325 MG; Start 01/19/17 at 21:00 Pregabalin (Lyrica) 25 mg BID PO ; Start 01/19/17 at 21:00 Acetaminophen/ Hydrocodone Bitart ([place] (5/325)) 1 tab Q4H PRN PO MODERATE PAIN; Start 01/19/17 at 14:30 Acetaminophen/ Hydrocodone Bitart ([place] (5/325)) 2 tab Q4H PRN PO MODERATE PAIN Last administered on 01/22/17 08:03; Admin Dose 2 TAB; Start 01/19/17 at 14:30 Losartan Potassium (Cozaar) 100 mg DAILY PO Last administered on 01/22/17 08: 02; Admin Dose 100 MG; Start 01/21/17 at 09:00 IBIS MORENO MD Jan 22, 2017 09:39 IBIS MORENO MD Jan 22, 2017 09:39
--- NOTE | 2017-01-22 18:26 | CONS ---
Date/Time of Note Date/Time of Note DATE: 01/22/17 TIME: 18:23 Assessment/Plan Assessment/Plan Chief Complaint/Hosp Course 1.she is 6 days postop right hip prosthesis revision. 2. Postop anemia 3. Hypertension. Her blood pressure has been elevated. I will increase her amlodipine to twice daily. 4. Patient is anticipated to go home tomorrow. Problems: Consultation Date/Type/Reason Admit Date/Time Jan 19, 2017 at 12:10 Initial Consult Date Type of Consultation: Medicine 24 HR Interval Summary Free Text/Dictation She is now on the acute rehab unit. She is doing well. She is anticipated to go home tomorrow. Constitutional: improved, no complaints Exam/Review of Systems Vital Signs Vitals Vital Signs Date Time Temp Pulse Resp B/P Pulse Ox O2 Delivery O2 Flow Rate FiO2 01/22/17 07:30 98.5 56 18 169/70 99 01/21/17 08:00 Room Air Intake and Output 01/21/17 01/21/17 01/22/17 15:00 23:00 07:00 Intake Total 560 ml 550 ml Output Total 800 ml Balance -240 ml 550 ml Exam Constitutional: alert, oriented, well developed Respiratory: clear to auscultation, normal air movement Cardiovascular: regular rate and rhythm Musculoskeletal: nl extremities to inspection Results Result Diagram: 01/20/17 0710 01/20/17 0710 Medications Medications Current Medications Amlodipine Besylate (Norvasc) 2.5 mg DAILY PO Last administered on 01/22/17 08 :02; Admin Dose 2.5 MG; Start 01/20/17 at 09:00 Bisacodyl (Dulcolax Supp) 10 mg Q12H PRN [place] CONSTIPATION; Start 01/19/17 at 14: 30 Magnesium Hydroxide (Milk Of Mag) 30 ml BID PRN PO CONSTIPATION; Start at 14:30 Docusate Sodium (Colace) 100 mg BID PO Last administered on 01/22/17 08:02; Admin Dose 100 MG; Start 01/19/17 at 21:00 Diphenhydramine HCl (Benadryl) 25 mg Q6H PRN PO PRURITUS; Start 01/19/17 at 14: 30 Aspirin (Ecotrin) 325 mg BID PO Last administered on 01/22/17 08:01; Admin Dose 325 MG; Start 01/19/17 at 21:00 Pregabalin (Lyrica) 25 mg BID PO ; Start 01/19/17 at 21:00 Acetaminophen/ Hydrocodone Bitart ([place] (5/325)) 1 tab Q4H PRN PO MODERATE PAIN; Start 01/19/17 at 14:30 Acetaminophen/ Hydrocodone Bitart ([place] (5/325)) 2 tab Q4H PRN PO MODERATE PAIN Last administered on 01/22/17 08:03; Admin Dose 2 TAB; Start 01/19/17 at 14:30 Losartan Potassium (Cozaar) 100 mg DAILY PO Last administered on 01/22/17 08: 02; Admin Dose 100 MG; Start 01/21/17 at 09:00 PASTORA YEPEZ MD Jan 22, 2017 18:26
[2017-01-22 20:17] VITALS: BP 167/67; RESP 18
[2017-01-23] VITALS (7 sets, daily range): BP systolic 134–191; BP diastolic 63–81; PULSE 61–74; RESP 18–20
[2017-01-23] MEDS: PANTOPRAZOLE (EC) 40 MG TAB PO SCH (06:05)
[2017-01-23] MEDS: LEVOTHYROXINE 88 MCG TAB PO SCH (06:05)
[2017-01-23 08:04] LABS: ALBUMIN 2.9 g/dl (3.3-4.9); ALBUMIN/GLOBULIN RATIO 1.26; BILIRUBIN,INDIRECT 0.8 mg/dl (0-1.1); BILIRUBIN,TOTAL 0.8 mg/dl (0.2-1.3); CALCIUM 9.3 mg/dl (8.4-10.2); CREATININE 0.66 mg/dl (0.44-1.00); POTASSIUM 3.8 mmol/L (3.5-5.1); TOTAL PROTEIN 5.2 g/dl (6.1-8.1)
[2017-01-23] MEDS: DOCUSATE SODIUM 100 MG CAP PO SCH ×2 (08:06→22:14)
[2017-01-23] MEDS: ASPIRIN (EC) 325 MG TAB PO SCH ×2 (08:06→22:14)
[2017-01-23] MEDS: AMLODIPINE 2.5 MG TAB PO SCH (08:06)
[2017-01-23] MEDS: LOSARTAN 50 MG TAB PO SCH (08:06)
[2017-01-23] MEDS: PREGABALIN 25 MG CAP PO SCH ×2 (08:08→22:00)
--- NOTE | 2017-01-23 08:24 | CONS ---
Date/Time of Note Date/Time of Note DATE: 01/23/17 TIME: 08:21 Assessment/Plan Assessment/Plan Additional Assessment/Plan 1. Post op right hip replacement, doing well 2. BP control not optimal, will chg cozaar to diovan, add HCT, and inc amlodipine, catapres will cont 3. Urinary frequency, bladder scan ordered and u/a and cult 4. Anemia, stable, will check iron studies Consultation Date/Type/Reason Admit Date/Time Jan 19, 2017 at 12:10 Initial Consult Date Type of Consultation: Medicine Detailed Summary Respiratory: No cough, No shortness of breath Cardiovascular: No chest pain Gastrointestinal: No no complaints Genitourinary: other (frequent urination without incontinence and no dysuria) Musculoskeletal: bone/joint pain (mild right hip pain) Neurologic: other (mild head throbbing last night when BP was elevated, this am is is not present) Exam/Review of Systems Vital Signs Vitals Vital Signs Date Time Temp Pulse Resp B/P Pulse Ox O2 Delivery O2 Flow Rate FiO2 01/23/17 08:09 98.0 74 18 162/74 100 Room Air Intake and Output 01/22/17 01/22/17 01/23/17 15:00 23:00 07:00 Intake Total 420 ml 800 ml Balance 420 ml 800 ml Exam Neck: No jvd Respiratory: clear to auscultation Cardiovascular: regular rate and rhythm Gastrointestinal: soft Extremities: No edema (and no calf tend bilat) Results Result Diagram: 01/20/17 0710 01/23/17 0605 Results 24 hrs Laboratory Tests Test 01/23/17 06:05 Sodium Level 136 Potassium Level 3.8 Chloride Level 100 Carbon Dioxide Level 31 Anion Gap 9 Blood Urea Nitrogen 15 Creatinine 0.66 Glucose Level 87 Calcium Level 9.3 Total Bilirubin 0.8 Direct Bilirubin 0.00 Indirect Bilirubin 0.8 Aspartate Amino Transf (AST/SGOT) 27 Alanine Aminotransferase (ALT/SGPT) 25 Alkaline Phosphatase 54 Total Protein 5.2 L Albumin 2.9 L Globulin 2.30 Albumin/Globulin Ratio 1.26 Medications Medications Current Medications Bisacodyl (Dulcolax Supp) 10 mg Q12H PRN [place] CONSTIPATION; Start 01/19/17 at 14: 30 Magnesium Hydroxide (Milk Of Mag) 30 ml BID PRN PO CONSTIPATION; Start at 14:30 Docusate Sodium (Colace) 100 mg BID PO Last administered on 01/23/17 08:06; Admin Dose 100 MG; Start 01/19/17 at 21:00 Diphenhydramine HCl (Benadryl) 25 mg Q6H PRN PO PRURITUS; Start 01/19/17 at 14: 30 Aspirin (Ecotrin) 325 mg BID PO Last administered on 01/23/17 08:06; Admin Dose 325 MG; Start 01/19/17 at 21:00 Pregabalin (Lyrica) 25 mg BID PO ; Start 01/19/17 at 21:00 Acetaminophen/ Hydrocodone Bitart ([place] (5/325)) 1 tab Q4H PRN PO MODERATE PAIN; Start 01/19/17 at 14:30 Acetaminophen/ Hydrocodone Bitart ([place] (5/325)) 2 tab Q4H PRN PO MODERATE PAIN Last administered on 01/22/17 08:03; Admin Dose 2 TAB; Start 01/19/17 at 14:30 Losartan Potassium (Cozaar) 100 mg DAILY PO Last administered on 01/23/17 08: 06; Admin Dose 100 MG; Start 01/21/17 at 09:00 Amlodipine Besylate (Norvasc) 2.5 mg BID PO Last administered on 01/23/17 08: 06; Admin Dose 2.5 MG; Start 01/22/17 at 21:00 Clonidine (Catapres) 0.1 mg Q6H PRN PO HIGH BLOOD PRESSURE Last administered on 01/23/17 01:14; Admin Dose 0.1 MG; Start 01/23/17 at 01:30 GRACE LOTT MD Jan 23, 2017 08:24
[2017-01-23] MEDS ORDERED: HYDROCHLOROTHIAZIDE 12.5 MG CAP PO ONE (08:30)
[2017-01-23] MEDS: AMLODIPINE 5 MG TAB PO SCH ×2 (09:00→22:15)
[2017-01-23] MEDS ORDERED: AMLODIPINE 2.5 MG TAB PO SCH (09:00)
[2017-01-23] MEDS: VALSARTAN 160 MG TAB PO SCH (09:25)
[2017-01-23] MEDS: POTASSIUM CHLORIDE (SR) 10 MEQ TAB PO SCH (09:26)
--- NOTE | 2017-01-23 13:04 | CONS ---
Date/Time of Note Date/Time of Note DATE: 01/23/17 TIME: 13:03 Consult Date/Type/Reason Admit Date/Time Jan 19, 2017 at 12:10 Type of Consultation: Medicine Subjective No new complaints Objective pulm-cta sba ambulation Vital Signs Date Time Temp Pulse Resp B/P Pulse Ox O2 Delivery O2 Flow Rate FiO2 01/23/17 08:09 98.0 74 18 162/74 100 Room Air Intake and Output 01/22/17 01/22/17 01/23/17 15:00 23:00 07:00 Intake Total 420 ml 800 ml Balance 420 ml 800 ml Results/Medications Result Diagram: 01/20/17 0710 01/23/17 0605 Results 24 hrs Laboratory Tests Test 01/23/17 06:05 Sodium Level 136 Potassium Level 3.8 Chloride Level 100 Carbon Dioxide Level 31 Anion Gap 9 Blood Urea Nitrogen 15 Creatinine 0.66 Glucose Level 87 Calcium Level 9.3 Total Bilirubin 0.8 Direct Bilirubin 0.00 Indirect Bilirubin 0.8 Aspartate Amino Transf (AST/SGOT) 27 Alanine Aminotransferase (ALT/SGPT) 25 Alkaline Phosphatase 54 Total Protein 5.2 L Albumin 2.9 L Globulin 2.30 Albumin/Globulin Ratio 1.26 Medications Current Medications Bisacodyl (Dulcolax Supp) 10 mg Q12H PRN [place] CONSTIPATION; Start 01/19/17 at 14: 30 Magnesium Hydroxide (Milk Of Mag) 30 ml BID PRN PO CONSTIPATION; Start at 14:30 Docusate Sodium (Colace) 100 mg BID PO Last administered on 01/23/17 08:06; Admin Dose 100 MG; Start 01/19/17 at 21:00 Diphenhydramine HCl (Benadryl) 25 mg Q6H PRN PO PRURITUS; Start 01/19/17 at 14: 30 Aspirin (Ecotrin) 325 mg BID PO Last administered on 01/23/17 08:06; Admin Dose 325 MG; Start 01/19/17 at 21:00 Pregabalin (Lyrica) 25 mg BID PO ; Start 01/19/17 at 21:00 Acetaminophen/ Hydrocodone Bitart ([place] (5/325)) 1 tab Q4H PRN PO MODERATE PAIN; Start 01/19/17 at 14:30 Acetaminophen/ Hydrocodone Bitart ([place] (5/325)) 2 tab Q4H PRN PO MODERATE PAIN Last administered on 01/22/17 08:03; Admin Dose 2 TAB; Start 01/19/17 at 14:30 Clonidine (Catapres) 0.1 mg Q6 PO ; Start 01/23/17 at 12:00 Valsartan (Diovan) 320 mg DAILY PO Last administered on 01/23/17 09:25; Admin Dose 320 MG; Start 01/23/17 at 09:00 Potassium Chloride (Klor-Con 10) 20 meq DAILY PO Last administered on 09:26; Admin Dose 20 MEQ; Start 01/23/17 at 09:00 Amlodipine Besylate (Norvasc) 5 mg BID PO ; Start 01/23/17 at 09:00 Assessment/Plan Additional Assessment/Plan Rehab- Other orthopedic injury due to mechanical complications with revision of right total hip replacement. Continue interdisciplinary rehab Osteoarthritis affecting multiple joints with a history of right total hip replacement, left total hip arthroplasty, left total knee arthroplasty. Acute pain syndrome-improving Severe anemia requiring transfusion. Hypertension. Hypothyroidism. Hiatal hernia. Mitral valve prolapse. IBIS MORENO MD Jan 23, 2017 13:04
[2017-01-23 14:33] LABS: ADD UMIC NO; URINE BILIRUBIN (Dip) NEGATIVE (NEGATIVE); URINE BLOOD (Dip) NEGATIVE (NEGATIVE); URINE COLOR LT. YELLOW (YELLOW); URINE GLUCOSE (Dip) NEGATIVE (NEGATIVE); URINE KETONES (Dip) NEGATIVE (NEGATIVE); URINE LEUKOCYTE ESTERASE (Dip) NEGATIVE (NEGATIVE); URINE NITRITE (Dip) NEGATIVE (NEGATIVE); URINE TOTAL PROTEIN (Dip) NEGATIVE (NEGATIVE); URINE UROBILINOGEN (Dip) 0.2 E.U./dL (0.1-1.0)
[2017-01-23 18:30] LABS: ADD SCAN DIFF NO
[2017-01-23 18:33] LABS: BASOPHILS % 0.5 % (0.0-2.0); EOSINOPHILS # 0.3 10^3/ul (0.0-0.5); EOSINOPHILS % 4.1 % (0.0-7.0); HEMATOCRIT 28.4 % (37.0-47.0); HEMOGLOBIN 9.5 g/dl (12.0-16.0); LYMPHOCYTES % 13.5 % (15.0-51.0); MEAN CORPUSCULAR HEMOGLOBIN 32.1 pg (29.0-33.0); MEAN CORPUSCULAR HGB CONC 33.5 g/dl (32.0-37.0); MEAN CORPUSCULAR VOLUME 95.9 fl (82.0-101.0); MEAN PLATELET VOLUME 9.5 fl (7.4-10.4); MONOCYTE # 0.8 10^3/ul (0.3-0.9); MONOCYTES % 11.4 % (0.0-11.0); NEUTROPHIL # 5.1 10^3/ul (1.6-7.5); NEUTROPHILS % 70.1 % (39.0-77.0); PLATELET COUNT 206 10^3/UL (140-415); RED BLOOD COUNT 2.96 10^6/ul (4.20-5.40); RED CELL DISTRIBUTION WIDTH 13.9 % (11.5-14.5); WHITE BLOOD COUNT 7.3 10^3/ul (4.8-10.8)
[2017-01-24 06:37] LABS: ADD SCAN DIFF NO
[2017-01-24 06:45] LABS: BASOPHILS % 0.6 % (0.0-2.0); EOSINOPHILS # 0.3 10^3/ul (0.0-0.5); EOSINOPHILS % 5.1 % (0.0-7.0); HEMATOCRIT 29.9 % (37.0-47.0); LYMPHOCYTES # 0.8 10^3/ul (0.8-2.9); LYMPHOCYTES % 12.6 % (15.0-51.0); MEAN CORPUSCULAR HEMOGLOBIN 31.9 pg (29.0-33.0); MEAN CORPUSCULAR HGB CONC 33.4 g/dl (32.0-37.0); MEAN CORPUSCULAR VOLUME 95.5 fl (82.0-101.0); MEAN PLATELET VOLUME 9.3 fl (7.4-10.4); MONOCYTE # 0.8 10^3/ul (0.3-0.9); NEUTROPHIL # 4.6 10^3/ul (1.6-7.5); NEUTROPHILS % 68.8 % (39.0-77.0); PLATELET COUNT 211 10^3/UL (140-415); RED BLOOD COUNT 3.13 10^6/ul (4.20-5.40); RED CELL DISTRIBUTION WIDTH 13.8 % (11.5-14.5); WHITE BLOOD COUNT 6.6 10^3/ul (4.8-10.8)
[2017-01-24] MEDS: PANTOPRAZOLE (EC) 40 MG TAB PO SCH (06:49)
[2017-01-24] MEDS: LEVOTHYROXINE 88 MCG TAB PO SCH (06:49)
[2017-01-24 06:57] LABS: IRON 34 ug/dl (35-150)
[2017-01-24 06:58] LABS: CREATININE 0.76 mg/dl (0.44-1.00)
[2017-01-24 06:59] LABS: CALCIUM 9.3 mg/dl (8.4-10.2); PHOSPHORUS 3.8 mg/dl (2.5-4.9)
[2017-01-24 07:00] LABS: MAGNESIUM 1.5 mg/dl (1.7-2.5)
[2017-01-24 07:06] LABS: TOTAL IRON BINDING CAPACITY 232 ug/dl (241-421)
--- NOTE | 2017-01-24 07:50 | CONS ---
Date/Time of Note Date/Time of Note DATE: 01/24/17 TIME: 07:49 Assessment/Plan Assessment/Plan Additional Assessment/Plan 1. Post op right hip replacement, doing well 2. BP control is better 3. Urinary frequency, resolved with unremarkable u/a and no signif post void residual 4. Anemia, sl better, will start iron 5. Mag is low, po mag started Consultation Date/Type/Reason Admit Date/Time Jan 19, 2017 at 12:10 Type of Consultation: Medicine Detailed Summary Respiratory: No cough, No shortness of breath Cardiovascular: No chest pain Gastrointestinal: no complaints Genitourinary: no complaints Musculoskeletal: bone/joint pain (mild right hip pain) Exam/Review of Systems Vital Signs Vitals Vital Signs Date Time Temp Pulse Resp B/P Pulse Ox O2 Delivery O2 Flow Rate FiO2 01/23/17 20:00 98.3 67 18 153/68 98 01/23/17 08:09 Room Air Intake and Output 01/23/17 01/23/17 01/24/17 15:00 23:00 07:00 Intake Total 750 ml 1000 ml Balance 750 ml 1000 ml Exam Neck: No jvd Respiratory: clear to auscultation Cardiovascular: regular rate and rhythm Gastrointestinal: soft Extremities: No edema (and no calf tend) Results Result Diagram: 01/24/17 0608 01/24/17 0608 Results 24 hrs Laboratory Tests Test 01/23/17 12:00 01/23/17 18:00 01/24/17 06:08 Urine Color LT. YELLOW Urine Clarity CLEAR Urine pH 7.0 Urine Specific [place] 1.010 Urine Ketones NEGATIVE Urine Nitrite NEGATIVE Urine Bilirubin NEGATIVE Urine Urobilinogen 0.2 E.U./dL Urine Leukocyte Esterase NEGATIVE Urine Hemoglobin NEGATIVE Urine Glucose NEGATIVE Urine Total Protein NEGATIVE White Blood Count 7.3 # 6.6 Red Blood Count 2.96 L 3.13 L Hemoglobin 9.5 L 10.0 L Hematocrit 28.4 L 29.9 L Mean Corpuscular Volume 95.9 95.5 Mean Corpuscular Hemoglobin 32.1 31.9 Mean Corpuscular Hemoglobin Concent 33.5 33.4 Red Cell Distribution Width 13.9 13.8 Platelet Count 206 # 211 Mean Platelet Volume 9.5 9.3 Neutrophils % 70.1 68.8 Lymphocytes % 13.5 L 12.6 L Monocytes % 11.4 H 12.0 H Eosinophils % 4.1 5.1 Basophils % 0.5 0.6 Nucleated Red Blood Cells % 0.0 0.0 Neutrophils # 5.1 4.6 Lymphocytes # 1.0 0.8 Monocytes # 0.8 0.8 Eosinophils # 0.3 0.3 Basophils # 0.0 0.0 Nucleated Red Blood Cells # 0.0 0.0 Sodium Level 134 L Potassium Level 4.0 Chloride Level 95 L Carbon Dioxide Level 33 H Anion Gap 10 Blood Urea Nitrogen 18 Creatinine 0.76 Glucose Level 88 Calcium Level 9.3 Phosphorus Level 3.8 Magnesium Level 1.5 L Iron Level 34 L Total Iron Binding Capacity 232 L Percent Iron Saturation 15 L Ferritin 122.0 Medications Medications Current Medications Bisacodyl (Dulcolax Supp) 10 mg Q12H PRN [place] CONSTIPATION; Start 01/19/17 at 14: 30 Magnesium Hydroxide (Milk Of Mag) 30 ml BID PRN PO CONSTIPATION; Start at 14:30 Docusate Sodium (Colace) 100 mg BID PO Last administered on 01/23/17 22:14; Admin Dose 100 MG; Start 01/19/17 at 21:00 Diphenhydramine HCl (Benadryl) 25 mg Q6H PRN PO PRURITUS; Start 01/19/17 at 14: 30 Aspirin (Ecotrin) 325 mg BID PO Last administered on 01/23/17 22:14; Admin Dose 325 MG; Start 01/19/17 at 21:00 Pregabalin (Lyrica) 25 mg BID PO ; Start 01/19/17 at 21:00 Acetaminophen/ Hydrocodone Bitart ([place] (5/325)) 1 tab Q4H PRN PO MODERATE PAIN; Start 01/19/17 at 14:30 Acetaminophen/ Hydrocodone Bitart ([place] (5/325)) 2 tab Q4H PRN PO MODERATE PAIN Last administered on 01/22/17 08:03; Admin Dose 2 TAB; Start 01/19/17 at 14:30 Clonidine (Catapres) 0.1 mg Q6 PO ; Start 01/23/17 at 12:00 Valsartan (Diovan) 320 mg DAILY PO Last administered on 01/23/17 09:25; Admin Dose 320 MG; Start 01/23/17 at 09:00 Potassium Chloride (Klor-Con 10) 20 meq DAILY PO Last administered on 09:26; Admin Dose 20 MEQ; Start 01/23/17 at 09:00 Amlodipine Besylate (Norvasc) 5 mg BID PO Last administered on 01/23/17 22:15 ; Admin Dose 5 MG; Start 01/23/17 at 09:00 GRACE LOTT MD Jan 24, 2017 07:50
[2017-01-24 08:00] VITALS: BP 158/75; RESP 18
[2017-01-24] MEDS: POTASSIUM CHLORIDE (SR) 10 MEQ TAB PO SCH (08:13)
[2017-01-24] MEDS: FERROUS FUMARATE (SR) TAB PO SCH ×2 (08:13→22:08)
[2017-01-24] MEDS: DOCUSATE SODIUM 100 MG CAP PO SCH ×2 (08:14→22:08)
[2017-01-24] MEDS: VALSARTAN 160 MG TAB PO SCH (08:14)
[2017-01-24] MEDS: MAGNESIUM OXIDE 400 MG TAB PO SCH ×2 (08:14→22:16)
[2017-01-24] MEDS: AMLODIPINE 5 MG TAB PO SCH ×2 (08:14→22:00)
[2017-01-24] MEDS: ASPIRIN (EC) 325 MG TAB PO SCH ×2 (08:14→22:16)
[2017-01-24] MEDS: PREGABALIN 25 MG CAP PO SCH ×2 (08:15→22:00)
[2017-01-24] MEDS: HYDROCHLOROTHIAZIDE 12.5 MG CAP PO SCH (08:15)
[2017-01-24 12:05] VITALS: BP 104/52
--- NOTE | 2017-01-24 12:36 | CONS ---
Date/Time of Note Date/Time of Note DATE: 01/24/17 TIME: 12:35 Consult Date/Type/Reason Admit Date/Time Jan 19, 2017 at 12:10 Type of Consultation: Medicine Subjective Comfortable, no complaints Objective pulm-cta abd-soft s/sba ambulation Vital Signs Date Time Temp Pulse Resp B/P Pulse Ox O2 Delivery O2 Flow Rate FiO2 01/24/17 12:05 104/52 01/24/17 08:00 98.2 18 100 Room Air 01/23/17 20:00 67 Intake and Output 01/23/17 01/23/17 01/24/17 15:00 23:00 07:00 Intake Total 750 ml 1000 ml Balance 750 ml 1000 ml Results/Medications Result Diagram: 01/24/17 0608 01/24/17 0608 Results 24 hrs Laboratory Tests Test 01/23/17 18:00 01/24/17 06:08 White Blood Count 7.3 # 6.6 Red Blood Count 2.96 L 3.13 L Hemoglobin 9.5 L 10.0 L Hematocrit 28.4 L 29.9 L Mean Corpuscular Volume 95.9 95.5 Mean Corpuscular Hemoglobin 32.1 31.9 Mean Corpuscular Hemoglobin Concent 33.5 33.4 Red Cell Distribution Width 13.9 13.8 Platelet Count 206 # 211 Mean Platelet Volume 9.5 9.3 Neutrophils % 70.1 68.8 Lymphocytes % 13.5 L 12.6 L Monocytes % 11.4 H 12.0 H Eosinophils % 4.1 5.1 Basophils % 0.5 0.6 Nucleated Red Blood Cells % 0.0 0.0 Neutrophils # 5.1 4.6 Lymphocytes # 1.0 0.8 Monocytes # 0.8 0.8 Eosinophils # 0.3 0.3 Basophils # 0.0 0.0 Nucleated Red Blood Cells # 0.0 0.0 Sodium Level 134 L Potassium Level 4.0 Chloride Level 95 L Carbon Dioxide Level 33 H Anion Gap 10 Blood Urea Nitrogen 18 Creatinine 0.76 Glucose Level 88 Calcium Level 9.3 Phosphorus Level 3.8 Magnesium Level 1.5 L Iron Level 34 L Total Iron Binding Capacity 232 L Percent Iron Saturation 15 L Ferritin 122.0 Medications Current Medications Bisacodyl (Dulcolax Supp) 10 mg Q12H PRN [place] CONSTIPATION; Start 01/19/17 at 14: 30 Magnesium Hydroxide (Milk Of Mag) 30 ml BID PRN PO CONSTIPATION; Start at 14:30 Docusate Sodium (Colace) 100 mg BID PO Last administered on 01/24/17 08:14; Admin Dose 100 MG; Start 01/19/17 at 21:00 Diphenhydramine HCl (Benadryl) 25 mg Q6H PRN PO PRURITUS; Start 01/19/17 at 14: 30 Aspirin (Ecotrin) 325 mg BID PO Last administered on 01/24/17 08:14; Admin Dose 325 MG; Start 01/19/17 at 21:00 Pregabalin (Lyrica) 25 mg BID PO ; Start 01/19/17 at 21:00 Acetaminophen/ Hydrocodone Bitart ([place] (5/325)) 1 tab Q4H PRN PO MODERATE PAIN; Start 01/19/17 at 14:30 Acetaminophen/ Hydrocodone Bitart ([place] (5/325)) 2 tab Q4H PRN PO MODERATE PAIN Last administered on 01/22/17 08:03; Admin Dose 2 TAB; Start 01/19/17 at 14:30 Clonidine (Catapres) 0.1 mg Q6 PO ; Start 01/23/17 at 12:00 Valsartan (Diovan) 320 mg DAILY PO Last administered on 01/24/17 08:14; Admin Dose 320 MG; Start 01/23/17 at 09:00 Potassium Chloride (Klor-Con 10) 20 meq DAILY PO Last administered on 08:13; Admin Dose 20 MEQ; Start 01/23/17 at 09:00 Amlodipine Besylate (Norvasc) 5 mg BID PO Last administered on 01/24/17 08:14 ; Admin Dose 5 MG; Start 01/23/17 at 09:00 Magnesium Oxide (Mag-Ox 400) 400 mg BID PO Last administered on 01/24/17 08:14 ; Admin Dose 400 MG; Start 01/24/17 at 09:00 Hydrochlorothiazide (Hydrochlorothiazide) 12.5 mg DAILY PO Last administered on 01/24/17 08:15; Admin Dose 12.5 MG; Start 01/24/17 at 09:00 Docusate Sodium/ Ferrous Fumarate (Nae-Sequels) 1 tab BID PO Last administered on 4/26/17at 08:13; Admin Dose 1 TAB; Start 01/24/17 at 09:00 Assessment/Plan Additional Assessment/Plan Rehab- Other orthopedic injury due to mechanical complications with revision of right total hip replacement. Continue rehab program, anticipate dc Sunday Osteoarthritis affecting multiple joints with a history of right total hip replacement, left total hip arthroplasty, left total knee arthroplasty. Acute pain syndrome-under good control Anemia- stable Hypertension. Hypothyroidism. Hiatal hernia. Mitral valve prolapse. IBIS MORENO MD Jan 24, 2017 12:36
[2017-01-24 18:02] VITALS: BP 132/61
[2017-01-24 21:38] VITALS: BP 151/67; RESP 18
[2017-01-25] MEDS: LEVOTHYROXINE 88 MCG TAB PO SCH (06:38)
[2017-01-25] MEDS: PANTOPRAZOLE (EC) 40 MG TAB PO SCH (06:38)
[2017-01-25 07:30] VITALS: BP 145/64; RESP 18
[2017-01-25] MEDS: POTASSIUM CHLORIDE (SR) 10 MEQ TAB PO SCH (08:19)
[2017-01-25] MEDS: MAGNESIUM OXIDE 400 MG TAB PO SCH ×2 (08:20→21:04)
[2017-01-25] MEDS: FERROUS FUMARATE (SR) TAB PO SCH ×2 (08:20→21:04)
[2017-01-25] MEDS: VALSARTAN 160 MG TAB PO SCH (08:20)
[2017-01-25] MEDS: ASPIRIN (EC) 325 MG TAB PO SCH ×2 (08:21→21:04)
[2017-01-25] MEDS: HYDROCODONE/APAP (5/325) TAB PO PRN (08:21)
[2017-01-25] MEDS: HYDROCHLOROTHIAZIDE 12.5 MG CAP PO SCH (08:22)
[2017-01-25] MEDS: DOCUSATE SODIUM 100 MG CAP PO SCH ×2 (08:22→21:00)
[2017-01-25] MEDS: PREGABALIN 25 MG CAP PO SCH ×2 (08:23→21:00)
--- NOTE | 2017-01-25 09:01 | CONS ---
Date/Time of Note Date/Time of Note DATE: 01/25/17 TIME: 08:59 Assessment/Plan Assessment/Plan Additional Assessment/Plan 1. Stable post op right hip replacement 2. BP cotrol has improved, had episode of dizziness yesterday and drop in BP, will check orthostatic BP 3. Anemia, stable Consultation Date/Type/Reason Admit Date/Time Jan 19, 2017 at 12:10 Type of Consultation: Medicine Detailed Summary Respiratory: No cough Cardiovascular: No chest pain, No lightheadedness Gastrointestinal: no complaints Genitourinary: no complaints Musculoskeletal: bone/joint pain (mild right hip pain) Exam/Review of Systems Vital Signs Vitals Vital Signs Date Time Temp Pulse Resp B/P Pulse Ox O2 Delivery O2 Flow Rate FiO2 01/25/17 07:30 98.6 56 18 145/64 100 01/24/17 08:00 Room Air Intake and Output 01/24/17 01/24/17 01/25/17 15:00 23:00 07:00 Intake Total 800 ml 1000 ml 350 ml Output Total 750 ml Balance 800 ml 1000 ml -400 ml Exam Neck: No jvd Respiratory: clear to auscultation Cardiovascular: regular rate and rhythm Gastrointestinal: soft Extremities: No edema (and no calf tend) Results Result Diagram: 01/24/17 0608 01/24/17 0608 Medications Medications Current Medications Bisacodyl (Dulcolax Supp) 10 mg Q12H PRN [place] CONSTIPATION; Start 01/19/17 at 14: 30 Magnesium Hydroxide (Milk Of Mag) 30 ml BID PRN PO CONSTIPATION; Start at 14:30 Docusate Sodium (Colace) 100 mg BID PO Last administered on 01/24/17 22:08; Admin Dose 100 MG; Start 01/19/17 at 21:00 Diphenhydramine HCl (Benadryl) 25 mg Q6H PRN PO PRURITUS; Start 01/19/17 at 14: 30 Aspirin (Ecotrin) 325 mg BID PO Last administered on 01/25/17 08:21; Admin Dose 325 MG; Start 01/19/17 at 21:00 Pregabalin (Lyrica) 25 mg BID PO ; Start 01/19/17 at 21:00 Acetaminophen/ Hydrocodone Bitart ([place] (5/325)) 1 tab Q4H PRN PO MODERATE PAIN Last administered on 01/25/17 08:21; Admin Dose 1 TAB; Start 01/19/17 at 14:30 Acetaminophen/ Hydrocodone Bitart ([place] (5/325)) 2 tab Q4H PRN PO MODERATE PAIN Last administered on 01/22/17 08:03; Admin Dose 2 TAB; Start 01/19/17 at 14:30 Clonidine (Catapres) 0.1 mg Q6 PO Last administered on 01/25/17 06:38; Admin Dose 0.1 MG; Start 01/23/17 at 12:00 Valsartan (Diovan) 320 mg DAILY PO Last administered on 01/25/17 08:20; Admin Dose 320 MG; Start 01/23/17 at 09:00 Potassium Chloride (Klor-Con 10) 20 meq DAILY PO Last administered on 08:19; Admin Dose 20 MEQ; Start 01/23/17 at 09:00 Amlodipine Besylate (Norvasc) 5 mg BID PO Last administered on 01/24/17 08:14 ; Admin Dose 5 MG; Start 01/23/17 at 09:00 Magnesium Oxide (Mag-Ox 400) 400 mg BID PO Last administered on 01/25/17 08:20 ; Admin Dose 400 MG; Start 01/24/17 at 09:00 Hydrochlorothiazide (Hydrochlorothiazide) 12.5 mg DAILY PO Last administered on 01/25/17 08:22; Admin Dose 12.5 MG; Start 01/24/17 at 09:00 Docusate Sodium/ Ferrous Fumarate (Nae-Sequels) 1 tab BID PO Last administered on 01/25/17 08:20; Admin Dose 1 TAB; Start 01/24/17 at 09:00 GRACE LOTT MD Jan 25, 2017 09:01
[2017-01-25 09:54] VITALS: BP_SYST 127; BP_SYST 144; BP_SYST 145; BP_DIAS 64; BP_DIAS 70; BP_DIAS 71
--- NOTE | 2017-01-25 11:20 | PN ---
Date/Time of Note Date/Time of Note DATE: 01/25/17 TIME: 11:14 Assessment/Plan VTE Prophylaxis VTE Prophylaxis Intervention: SCD's (ASA), other Lines/Catheters Urinary Cath still in place: No Assessment/Plan Assessment/Plan 1. Status post revision of right total hip replacement, with impaired mobility/ gait/ADLs. Continue PT/OT. Now modified independent for bed mobility and transfers, ambulating 300ft with SPV. Will need to follow up with ortho. 2. Acute post op pain syndrome. Pain controlled, continue prn norco. 3. Osteoarthritis affecting multiple joints with a history of right total hip replacement, left total hip arthroplasty, left total knee arthroplasty. Continue pain control. 4.Anemia- continue to monitor hemoglobin/hematocrit, improving on last labs. On iron supplementation per internal medicine. 5 Hypertension. BP labile, internal medicine adjusting regimen. 6. Hypothyroidism. Continue levothyroxine. Subjective 24 Hr Interval Summary Free Text/Dictation Rehab progress note Subjective: Reports mild right hip pain, overall controlled. ROS: Denies chest pain, no shortness of breath, no abdominal pain, no nausea, no vomiting, no headache, no constipation. Exam/Review of Systems Vital Signs Vitals Vital Signs Date Time Temp Pulse Resp B/P Pulse Ox O2 Delivery O2 Flow Rate FiO2 01/25/17 09:54 145/64 144/70 127/71 01/25/17 07:30 98.6 56 18 100 01/24/17 08:00 Room Air Intake and Output 01/24/17 01/24/17 01/25/17 15:00 23:00 07:00 Intake Total 800 ml 1000 ml 350 ml Output Total 750 ml Balance 800 ml 1000 ml -400 ml Exam General: Awake, alert, no acute distress CV: Regular rate, s1s2 Lungs: Clear to auscultation, no wheezing Abdomen soft, nontender Extremities without cyanosis, calves nontender, right hip surgical site with dressing in place clean and dry Neuro: Wiggles all toes on right. Antigravity strength BUE. Results Result Diagram: 01/24/17 0608 01/24/17 0608 Medications Medications Current Medications Bisacodyl (Dulcolax Supp) 10 mg Q12H PRN [place] CONSTIPATION; Start 01/19/17 at 14: 30 Magnesium Hydroxide (Milk Of Mag) 30 ml BID PRN PO CONSTIPATION; Start at 14:30 Docusate Sodium (Colace) 100 mg BID PO Last administered on 01/24/17 22:08; Admin Dose 100 MG; Start 01/19/17 at 21:00 Diphenhydramine HCl (Benadryl) 25 mg Q6H PRN PO PRURITUS; Start 01/19/17 at 14: 30 Aspirin (Ecotrin) 325 mg BID PO Last administered on 01/25/17 08:21; Admin Dose 325 MG; Start 01/19/17 at 21:00 Pregabalin (Lyrica) 25 mg BID PO ; Start 01/19/17 at 21:00 Acetaminophen/ Hydrocodone Bitart ([place] (5/325)) 1 tab Q4H PRN PO MODERATE PAIN Last administered on 01/25/17 08:21; Admin Dose 1 TAB; Start 01/19/17 at 14:30 Acetaminophen/ Hydrocodone Bitart ([place] (5/325)) 2 tab Q4H PRN PO MODERATE PAIN Last administered on 01/22/17 08:03; Admin Dose 2 TAB; Start 01/19/17 at 14:30 Valsartan (Diovan) 320 mg DAILY PO Last administered on 01/25/17 08:20; Admin Dose 320 MG; Start 01/23/17 at 09:00 Amlodipine Besylate (Norvasc) 5 mg BID PO Last administered on 01/24/17 08:14 ; Admin Dose 5 MG; Start 01/23/17 at 09:00 Magnesium Oxide (Mag-Ox 400) 400 mg BID PO Last administered on 01/25/17 08:20 ; Admin Dose 400 MG; Start 01/24/17 at 09:00 Hydrochlorothiazide (Hydrochlorothiazide) 12.5 mg DAILY PO Last administered on 01/25/17 08:22; Admin Dose 12.5 MG; Start 01/24/17 at 09:00 Docusate Sodium/ Ferrous Fumarate (Nae-Sequels) 1 tab BID PO Last administered on 01/25/17 08:20; Admin Dose 1 TAB; Start 01/24/17 at 09:00 Clonidine (Catapres) 0.05 mg Q6 PO ; Start 01/25/17 at 12:00 FRIDA ROMERO Jan 25, 2017 11:20 FRIDA ROMERO Jan 25, 2017 11:20
[2017-01-25] MEDS: AMLODIPINE 5 MG TAB PO SCH ×2 (13:11→21:00)
--- NOTE | 2017-01-25 16:37 | PN ---
Date/Time of Note Date/Time of Note DATE: 01/25/17 TIME: 16:36 Assessment/Plan Lines/Catheters Burch in Place (from Nrsg): No Assessment/Plan Assessment/Plan Stable in ARU, s/p revision right JESS -pain meds as needed -cont ASA/SCDs for DVT prophylaxis -OOB with PT -posterior hip precautions -dressing changed -chelsi removed, steri strips applied -follow up in the office in 1 week Subjective 24 Hr Interval Summary Progressing nicely in ARU. Had some blood pressure issues therefore discharge was held. Denies any significant hip pain. Making good progress with PT. Will plan to go home tomorrow Exam/Review of Systems Vital Signs Vitals Vital Signs Date Time Temp Pulse Resp B/P Pulse Ox O2 Delivery O2 Flow Rate FiO2 01/25/17 09:54 145/64 144/70 127/71 01/25/17 07:30 98.6 56 18 100 01/24/17 08:00 Room Air Intake and Output 01/24/17 01/24/17 01/25/17 15:00 23:00 07:00 Intake Total 800 ml 1000 ml 350 ml Output Total 750 ml Balance 800 ml 1000 ml -400 ml Exam Free Text/Dictation Dressing dry Incision clean, dry, and intact without redness or drainage 5/5 Quadriceps, Tibialis Anterior, EHL, Gastroc, Soleus, Peroneals Normal sensation Palpable DT/PT, CR <2 sec No distal edema Results Result Diagram: 01/24/17 0608 01/24/17 0608 JEANNE CARMICHAEL PA-C Jan 25, 2017 16:37
[2017-01-25 19:29] VITALS: BP 149/64; RESP 20
[2017-01-25 21:00] VITALS: BP 107/47
[2017-01-26] MEDS: LEVOTHYROXINE 88 MCG TAB PO SCH (05:40)
[2017-01-26] MEDS: PANTOPRAZOLE (EC) 40 MG TAB PO SCH (05:40)
[2017-01-26 06:00] VITALS: BP 145/53
[2017-01-26 06:43] LABS: ADD SCAN DIFF NO
[2017-01-26 06:48] LABS: BASOPHIL # 0.1 10^3/ul (0.0-0.1); EOSINOPHILS # 0.4 10^3/ul (0.0-0.5); EOSINOPHILS % 6.7 % (0.0-7.0); HEMATOCRIT 30.9 % (37.0-47.0); HEMOGLOBIN 10.2 g/dl (12.0-16.0); LYMPHOCYTES % 15.8 % (15.0-51.0); MEAN CORPUSCULAR HEMOGLOBIN 31.5 pg (29.0-33.0); MEAN CORPUSCULAR VOLUME 95.4 fl (82.0-101.0); MEAN PLATELET VOLUME 9.2 fl (7.4-10.4); MONOCYTE # 0.6 10^3/ul (0.3-0.9); NEUTROPHIL # 4.1 10^3/ul (1.6-7.5); NEUTROPHILS % 65.7 % (39.0-77.0); PLATELET COUNT 240 10^3/UL (140-415); RED BLOOD COUNT 3.24 10^6/ul (4.20-5.40); RED CELL DISTRIBUTION WIDTH 13.9 % (11.5-14.5); WHITE BLOOD COUNT 6.3 10^3/ul (4.8-10.8)
[2017-01-26 07:24] LABS: CALCIUM 9.4 mg/dl (8.4-10.2); CREATININE 0.75 mg/dl (0.44-1.00); MAGNESIUM 1.9 mg/dl (1.7-2.5); POTASSIUM 4.5 mmol/L (3.5-5.1)
[2017-01-26 07:30] VITALS: BP 126/60; RESP 18
--- NOTE | 2017-01-26 08:00 | CONS ---
Date/Time of Note Date/Time of Note DATE: 01/26/17 TIME: 07:57 Assessment/Plan Assessment/Plan Additional Assessment/Plan 1. Doing well post op right hip replacement 2. Low sodium noted, BP meds will need to be modified. 3. Anemia, stable 4. OK to dc if OK with Rehab Consultation Date/Type/Reason Admit Date/Time Jan 19, 2017 at 12:10 Type of Consultation: Medicine Detailed Summary Respiratory: No cough, No shortness of breath Cardiovascular: No chest pain Gastrointestinal: no complaints Genitourinary: no complaints Musculoskeletal: bone/joint pain (milkd right hip pain) Exam/Review of Systems Vital Signs Vitals Vital Signs Date Time Temp Pulse Resp B/P Pulse Ox O2 Delivery O2 Flow Rate FiO2 01/26/17 06:00 145/53 01/25/17 19:29 97.6 61 20 96 01/24/17 08:00 Room Air Intake and Output 01/25/17 01/25/17 01/26/17 15:00 23:00 07:00 Intake Total 1200 ml 300 ml Output Total 350 ml 700 ml Balance 850 ml -400 ml Exam Neck: No jvd Respiratory: clear to auscultation Cardiovascular: regular rate and rhythm Gastrointestinal: soft Extremities: No edema (and no calf tend) Results Result Diagram: 01/26/17 0620 01/26/17 0620 Results 24 hrs Laboratory Tests Test 01/26/17 06:20 White Blood Count 6.3 Red Blood Count 3.24 L Hemoglobin 10.2 L Hematocrit 30.9 L Mean Corpuscular Volume 95.4 Mean Corpuscular Hemoglobin 31.5 Mean Corpuscular Hemoglobin Concent 33.0 Red Cell Distribution Width 13.9 Platelet Count 240 Mean Platelet Volume 9.2 Neutrophils % 65.7 Lymphocytes % 15.8 Monocytes % 10.0 Eosinophils % 6.7 Basophils % 1.0 Nucleated Red Blood Cells % 0.0 Neutrophils # 4.1 Lymphocytes # 1.0 Monocytes # 0.6 Eosinophils # 0.4 Basophils # 0.1 Nucleated Red Blood Cells # 0.0 Sodium Level 130 L Potassium Level 4.5 Chloride Level 95 L Carbon Dioxide Level 33 H Anion Gap 7 L Blood Urea Nitrogen 18 Creatinine 0.75 Glucose Level 92 Calcium Level 9.4 Magnesium Level 1.9 Medications Medications Current Medications Bisacodyl (Dulcolax Supp) 10 mg Q12H PRN [place] CONSTIPATION; Start 01/19/17 at 14: 30 Magnesium Hydroxide (Milk Of Mag) 30 ml BID PRN PO CONSTIPATION; Start at 14:30 Docusate Sodium (Colace) 100 mg BID PO Last administered on 01/24/17 22:08; Admin Dose 100 MG; Start 01/19/17 at 21:00 Diphenhydramine HCl (Benadryl) 25 mg Q6H PRN PO PRURITUS; Start 01/19/17 at 14: 30 Aspirin (Ecotrin) 325 mg BID PO Last administered on 01/25/17 21:04; Admin Dose 325 MG; Start 01/19/17 at 21:00 Pregabalin (Lyrica) 25 mg BID PO ; Start 01/19/17 at 21:00 Acetaminophen/ Hydrocodone Bitart ([place] (5/325)) 1 tab Q4H PRN PO MODERATE PAIN Last administered on 01/25/17 08:21; Admin Dose 1 TAB; Start 01/19/17 at 14:30 Acetaminophen/ Hydrocodone Bitart ([place] (5/325)) 2 tab Q4H PRN PO MODERATE PAIN Last administered on 01/22/17 08:03; Admin Dose 2 TAB; Start 01/19/17 at 14:30 Valsartan (Diovan) 320 mg DAILY PO Last administered on 01/25/17 08:20; Admin Dose 320 MG; Start 01/23/17 at 09:00 Amlodipine Besylate (Norvasc) 5 mg BID PO Last administered on 01/25/17 13:11 ; Admin Dose 5 MG; Start 01/23/17 at 09:00 Magnesium Oxide (Mag-Ox 400) 400 mg BID PO Last administered on 01/25/17 21:04 ; Admin Dose 400 MG; Start 01/24/17 at 09:00 Hydrochlorothiazide (Hydrochlorothiazide) 12.5 mg DAILY PO Last administered on 01/25/17 08:22; Admin Dose 12.5 MG; Start 01/24/17 at 09:00 Docusate Sodium/ Ferrous Fumarate (Nae-Sequels) 1 tab BID PO Last administered on 01/25/17 21:04; Admin Dose 1 TAB; Start 01/24/17 at 09:00 Clonidine (Catapres) 0.05 mg Q6 PO Last administered on 01/26/17t 05:37; Admin Dose 0.05 MG; Start 01/25/17 at 12:00 GRACE LOTT MD Jan 26, 2017 08:00
[2017-01-26] MEDS: VALSARTAN 160 MG TAB PO SCH (08:56)
[2017-01-26] MEDS: FERROUS FUMARATE (SR) TAB PO SCH (08:57)
[2017-01-26] MEDS: MAGNESIUM OXIDE 400 MG TAB PO SCH (08:57)
[2017-01-26] MEDS: ASPIRIN (EC) 325 MG TAB PO SCH (08:57)
[2017-01-26] MEDS: HYDROCODONE/APAP (5/325) TAB PO PRN (08:57)
[2017-01-26] MEDS: HYDROCHLOROTHIAZIDE 12.5 MG CAP PO SCH (09:00)
[2017-01-26] MEDS: PREGABALIN 25 MG CAP PO SCH (09:00)
[2017-01-26] MEDS: DOCUSATE SODIUM 100 MG CAP PO SCH (09:00)
[2017-01-26] MEDS: AMLODIPINE 5 MG TAB PO SCH (09:00)
== END 2017-01-26 11:30 | disposition home health service (06) | DRG 948 ==
LOC: VRC 01-19 12:10
PROVIDERS: ADMIT Physical Medicine & Rehabilitation; ATTEND Internal Medicine
DX: G89.18 Other acute postprocedural pain (principal); E87.1 Hypo-osmolality and hyponatremia; D64.9 Anemia, unspecified; I34.1 Nonrheumatic mitral (valve) prolapse; E03.9 Hypothyroidism, unspecified; I10 Essential (primary) hypertension; K44.9 Diaphragmatic hernia without obstruction or gangrene; M19.91 Primary osteoarthritis, unspecified site; F80.89 Other developmental disorders of speech and language; R35.0 Frequency of micturition; Z96.643 Presence of artificial hip joint, bilateral; Z96.652 Presence of left artificial knee joint
CPT/HCPCS: 80048; 80053; 81003; 82728; 83540; 83735; 84100; 85025; 87081; 87086; 93971; 97110; 97112; 97116; 97150; 97162; 97166; 97530; 97535

== ENCOUNTER → 2017-01-31 | Outpatient (CLI) | payer MEDICARE, BC ==
--- NOTE | 2017-01-31 13:47 | HKNOTE ---
DATE OF SERVICE: 01/31/2017 INTERVAL HISTORY: The patient presents today for a postoperative evaluation on her right hip. She is approximately 2 weeks status post revision right total hip arthroplasty secondary to mechanical complications of a [id number] right total hip. She is doing well overall. She was at the acute rehabilitation unit, but is now home doing home health physical therapy. She denies any fevers or chills. She denies any pus or drainage. She presents today for her first postoperative evaluation. PHYSICAL EXAMINATION: Today, she is alert and oriented x4 and in no acute distress. The incision is clean, dry, and intact. The chelsi were removed previously while she was in the hospital. There is no erythema, warmth, pus, or drainage noted. She has no pain with passive range of motion of the right hip. Homans sign is negative. The compartments are soft. She is neurovascularly intact distally. IMAGING: X-ray of the right hip was obtained today and reviewed by me. It demonstrated a good anatomic alignment with no fractures or dislocation identified. ASSESSMENT: Approximately 2 weeks status post revision right total hip arthroplasty. PLAN: The incision is clean, dry, and intact and it appears to be early healing nicely. She should continue with aspirin 325 mg twice a day for DVT prophylaxis. She will continue with home health physical therapy and transition to an outpatient physical therapy program if needed. She is able to ambulate as tolerated. We will see her back in 4 weeks for repeat evaluation. She is to call the office in the meantime if she has any concerns. Dictated By: JEANNE BYRD/IRWIN Conf#: [id number] DID#: [id number] BLAIR
--- NOTE | 2017-02-01 09:16 | RADRPT ---
PROCEDURE: XR pelvis/right hip. CLINICAL INDICATION: Hip pain TECHNIQUE: AP pelvis/lateral right hip view available for review. COMPARISON: 01/16/2017 FINDINGS: There are bilateral total hip replacements. There is normal mineralization, architecture and alignment. There is no evidence of loosening of th e prosthesis. There is no evidence of hardware failure. No fractures, dislocation or osseous lesions are identified. The joints are unremarkable. There are normal soft tissues. IMPRESSION: Bilateral total hip replacements. Otherwise unremarkable examination. RPTAT: HGDB .James Prieto MD, MD Date Time Electronically viewed and signed by .James Prieto MD, on 02/01/2017 09:15 .B/
== END | disposition home or self-care (01) ==
LOC: HKI 09:33
PROVIDERS: ATTEND Orthopaedic Surgery
DX: Z47.1 Aftercare following joint replacement surgery (principal); Z96.641 Presence of right artificial hip joint
CPT/HCPCS: 73502

== ENCOUNTER → 2017-02-28 | Outpatient (CLI) | payer MEDICARE, BC ==
--- NOTE | 2017-02-28 13:40 | RADRPT ---
PROCEDURE: XR pelvis/right hip. CLINICAL INDICATION: Hip pain TECHNIQUE: AP pelvis/lateral right hip view available for review. COMPARISON: 01/31/2017 FINDINGS: There are bilateral total hip replacements. There is normal mineralization, architecture and alignment. There is no evidence of loosening of th e prosthesis. There is no evidence of hardware failure. No fractures, dislocation or osseous lesions are identified. The joints are unremarkable. There are normal soft tissues. IMPRESSION: Bilateral total hip replacements. Otherwise unremarkable examination. RPTAT: HGDB .James Prieto MD, MD Date Time Electronically viewed and signed by .James Prieto MD, on 02/28/2017 13:40 .B/
== END | disposition home or self-care (01) ==
LOC: HKI 09:08
PROVIDERS: ATTEND Orthopaedic Surgery
DX: Z47.1 Aftercare following joint replacement surgery (principal); Z96.641 Presence of right artificial hip joint; T84.090A Other mechanical complication of internal right hip prosthesis, initial encounter
CPT/HCPCS: 73502

== ENCOUNTER → 2017-05-18 | Outpatient (CLI) | payer MEDICARE, BC ==
--- NOTE | 2017-05-18 10:28 | RADRPT ---
PROCEDURE: XR right Hip and pelvis. CLINICAL INDICATION: Pain TECHNIQUE: Single AP view of the pelvis, AP and frog lateral views of the right hip were performed. COMPARISON: 02/28/2017 right hip radiographs FINDINGS: Bilateral total hip arthroplasty is present. No evidence for periprosthetic lucency or hardware tammy lure. There is normal mineralization and alignment. No fracture or osseous lesion is identified. There are normal joints without evidence of arthritis or effusion. The soft tissues are unremarkable. IMPRESSION: Bilateral total hip replacements in good anatomic alignment. No evidence for periprosthetic fractur e or hardware loosening. Otherwise unremarkable exam RPTAT: PP .Volodymyr Perales MD, MD Date Time Electronically viewed and signed by .Volodymyr Perales MD, on 05/18/2017 10:28 .Amanda
== END | disposition home or self-care (01) ==
LOC: HKI 08:25
PROVIDERS: ATTEND Orthopaedic Surgery
DX: Z09 Encounter for follow-up examination after completed treatment for conditions other than malignant neoplasm (principal); Z96.641 Presence of right artificial hip joint; I10 Essential (primary) hypertension; E03.9 Hypothyroidism, unspecified; Z86.718 Personal history of other venous thrombosis and embolism
CPT/HCPCS: 73502; G0463

== ENCOUNTER 2019-02-06 06:46 | Inpatient (IN) | payer MEDICARE, BC ==
[2019-02-05 15:34] VITALS: BMI 26.1
[2019-02-06] VITALS (34 sets, daily range): BP systolic 96–151; BP diastolic 45–72; PULSE 52–73; RESP 13–25; Ht 162.6 cm; Wt 69.5 kg
[~2019-02-06] VITALS: Ht 162.6 cm; Wt 69.5 kg
[~2019-02-06 06:46] MED LIST changes: +ACETAMINOPHEN 500 MG TAB PO ONE; -ALIS1TAB3 PO; +AMLO-147 PO; -AMLO2.5T2 PO; +CEFAZOLIN 2 GM/50 ML (PMX) 50 ML (FOR WT < 120 KG) IVPB ONE; -CHOL400D8 PO; +CHOL500010 PO; +CYCL1DRO BOTH EYES; +DEXAMETHASONE 4 MG/ML 1 ML INJ IV ONE; -FERR325C PO; -LACT1CAP56 PO; +LACTATED RINGER'S 1,000 ML IV SCH; +LEVO100T82 PO; -LEVO88TA PO; +LIOT5TAB3 PO; -MULT-761 PO; +OLME20TA20 PO; +OMEG-105 PO; -POTA10TA15 PO; -RESV100C PO; +RESV1TAB2 PO; -SALM1CAP2 PO; +TRANEXAMIC ACID 1GM/100ML(PMX) 100 ML AT INCISION X1 IVPB ONE; -UBID1CAP3 PO; +UBID30CA12 PO
[2019-02-06] MEDS ORDERED: GABA100C14 PO (08:23)
[2019-02-06] MEDS ORDERED: MELO7.5T38 PO (08:24)
--- NOTE | 2019-02-06 09:41 | HPN ---
Date/Time of Note Date/Time of Note DATE: 02/06/19 TIME: 09:41 Interval H&P Admission Note Pt. seen H&P reviewed: No system changes JANIYA JI February 06, 2019 09:41
[2019-02-06] MEDS ORDERED: BACITRACIN 50000 UNITS INJ ONE (10:33)
[2019-02-06] MEDS ORDERED: POLYMYXIN B 500000 UNIT INJ ONE (10:36)
[2019-02-06] MEDS ORDERED: EPHEDrine 25 MG/5 ML SYG ONE (10:38)
[2019-02-06] MEDS ORDERED: CEFAZOLIN 1 GM INJ ONE (10:38)
[2019-02-06] MEDS ORDERED: PROPOFOL 20 ML ONE (10:38)
[2019-02-06] MEDS ORDERED: MIDAZOLAM 1 MG/ML 2 ML INJ ONE (10:38)
--- NOTE | 2019-02-06 10:46 | PREAC ---
Date/Time of Note Date/Time of Note DATE: 02/06/19 TIME: 10:42 Anesthesia Eval and Record Evaluation Time Pre-Procedure Interview DATE: 02/06/19 TIME: 10:42 Age 73 Sex female NPO: 8 hrs Preoperative diagnosis Degenarative Joint Disease Planned procedure Total Hip Arthroplasty Past Medical History Past Medical History: Includes Cardio: HTN Endo: Hypothyroid Recreational drugs: Other (Spinal Stenosis) Surgery & Anesthesia Issues No known issue Meds Anticoagulation: No Beta Tano within 24 hr: No Reason Beta Tano not given: Pt. not on B-Tano Reported Medications Meloxicam* (Meloxicam*) 7.5 Mg Tablet, 7.5 MG PO BID, #30 TAB 02/06/19 Gabapentin* (Gabapentin*) 100 Mg Capsule, 100 MG PO TID, #90 CAP 02/06/19 Cholecalciferol (Vitamin D3) 5,000 Unit Tablet, 5000 UNIT PO DAILY, TAB 01/27/19 Ubidecarenone (Coq-10) 30 Mg Capsule, 60 MG PO DAILY, CAP 01/27/19 [place]-3 Fatty Acids/Fish Oil (Fish Oil 1,200 mg Softgel) 1 Each Capsule, 1 EACH PO DAILY, CAP 01/27/19 Resveratrol/Grape Skin Extract (Resveratrol 100 mg Tablet) 1 Each Tablet, 1 EACH PO BID, TAB 01/27/19 Ascorbic Acid* (Vitamin C*) 500 Mg Capsule.sa, 500 MG PO DAILY, CAP 01/27/19 Amlodipine Besylate* (Amlodipine Besylate*) 10 Mg Tablet, 10 MG PO DAILY, #30 TAB 01/27/19 Olmesartan Medoxomil (Benicar) 20 Mg Tablet, 20 MG PO DAILY, #30 TAB 01/27/19 Cyclosporine (RESTASIS) 1 Each Droperette, 1 DROP BOTH EYES Q12, #1 BOX 01/27/19 Liothyronine Sodium* (Cytomel*) 5 Mcg Tablet, 5 MCG PO DAILY, TAB 01/27/19 Levothyroxine Sodium* (Levoxyl*) 100 Mcg Tablet, 100 MCG PO BEFORE BREAKFAST, #30 TAB 01/27/19 Current Medications Lactated Ringer's 1,000 ml @ 25 mls/hr Q24H IV Last administered on 02/06/19at 08:14; Admin Dose 25 MLS/HR; Start 5/9/19 at 06:00 Meds reviewed: Yes Allergies Coded Allergies: rivaroxaban (Verified Allergy, Severe, 02/06/19) HEMATOMA, INFECTION teriparatide (Verified Adverse Reaction, Unknown, HEADACHE, 02/06/19) Allergies Reviewed: Yes Labs/Studies Labs Reviewed: Reviewed by anesthesiologist test: N/A Studies: ECG (Sinus Bradycardia) Pre-procedure Exam Last vitals Vital Signs Date Temp Pulse Resp B/P (MAP) Pulse Ox O2 O2 Flow FiO2 Time Delivery Rate 02/06/19 97.6 52 16 148/65 99 Room Air 08:16 (92) Airway: Adequate mouth opening Mallampati: Mallampati II Teeth: Normal Lung: Normal Heart: Normal ASA Physical Status ASA physical status: 3 Emergency: None Planned Anesthetic General/MAC: LMA Planned Pain Management Sub-arachniod narcotics Pre-operative Attestations Prior to commencing anesthesia and surgery, the patient was re-evaluated, there was verification of: *The patient's identity *The results of appropriate recent lab work and preoperative vital signs *The above evaluation not changing prior to induction *Anesthetic plan, risk benefits, alternative and complications discussed with patient/family; questions answered; patient/family understands, accepts and wishes to proceed. DELMER VALLADARES MD February 06, 2019 10:46
[2019-02-06] MEDS ORDERED: TRANEXAMIC ACID 1GM/100ML(PMX) 100 ML ONE ×2 (11:41→12:09)
[2019-02-06] MEDS ORDERED: DEXAMETHASONE 4 MG/ML 5 ML INJ ONE (11:41)
[2019-02-06] MEDS ORDERED: KETOROLAC 30 MG INJ ONE (11:53)
[2019-02-06] MEDS ORDERED: ONDANSETRON 4 MG INJ ONE (11:53)
[2019-02-06] MEDS: TRANEXAMIC ACID 1GM/100ML(PMX) 100 ML AT CLOSURE X1 IVPB ONE ×2 (12:45)
[2019-02-06] MEDS ORDERED: KETOROLAC 30 MG INJ IV PRN (13:00)
[2019-02-06] MEDS ORDERED: ACETAMINOPHEN 500 MG TAB PO PRN (13:00)
[2019-02-06] MEDS ORDERED: ONDANSETRON 4 MG INJ IV PRN (13:00)
--- NOTE | 2019-02-06 13:41 | PAC ---
Date/Time of Note Date/Time of Note DATE: 02/06/19 TIME: 13:41 Post-Anesthesia Notes Post-Anesthesia Note Last documented vital signs Vital Signs Date Temp Pulse Resp B/P (MAP) Pulse Ox O2 O2 Flow FiO2 Time Delivery Rate 02/06/19 97.6 52 16 148/65 99 Room Air 08:16 (92) Activity: WNL Respiratory function: WNL Cardiovascular function: WNL Mental status: Baseline Pain reasonably controlled: Yes Hydration appropriate: Yes Nausea/Vomiting absent: Yes DELMER VALLADARES MD February 06, 2019 13:41
--- NOTE | 2019-02-06 13:44 | SIPON ---
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
--- NOTE | 2019-02-06 13:49 | OPR ---
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 Postoperative Diagnosis Same Operation/Procedure Performed Revision of left total hip replacement Surgeon see signature line Epic Beacon Analyst ELISEO Santana Anesthesia Type: spinal Estimated Blood Loss: 250 - 300 ml's Transfusion none Specimen Cultures, frozen section, explant Grafts/Implants Paredes [employer] Nephew hip, size 60 cup, 36 mm head, cross-link polyethylene Tubes/Drains None Complications none Pt Condition Post Procedure: stable Disposition: PACU Indications Patient is a 73-year-old female with a failed left total hip replacement and mechanical loosening of the acetabular component Procedure Description Patient was placed supine on the operating room table. The left hip was prepped and draped in usual manner. An anterior incision was made. A plane between the sartorius and tensor fascia cecilia was developed in a blunt fashion. Branches of the circumflex vessels were identified and cauterized with aqua Mantis. The hip capsule was opened. The total hip replacement was found to have displacement and loosening of the acetabular component as well as scratches on the femoral head with metallosis. The hip was thoroughly irrigated. Capsular release was done. Frozen section was done to rule out infection. There was no evidence of infection. The femoral head and loose acetabular component was removed. The acetabulum was curetted and all metallosis removed. Reaming of the acetabulum was done with [employer] reamers up to a size 59. A 60 mm trial cup was well fitting. Trial liner was placed and a 36 mm +8 head placed. The trial was stable. The leg length was felt to be 5 mm longer than the right and this was accepted due to excellent stability. X-rays confirm proper alignment of the implants. After this the trials were removed. Final components were placed. The cup was further secured with 2 screws. Cross-link polyethylene was placed and a 36 mm +8 Oxinium head placed to complete the hip replacement. The wound was thoroughly irrigated and injected with Marcaine and pain cocktail. Hemostasis was confirmed and the wound closed in layers using #1 strata fix for deep fascia, 2-0 Vicryl for subcutaneous tissue and 3-0 Monocryl for the skin. Patient was transferred to the recovery room in stable condition JANIYA JI February 06, 2019 13:49
[2019-02-06] MEDS ORDERED: KETOROLAC 15 MG INJ IV PRN (14:00)
[2019-02-06] MEDS ORDERED: MAGNESIUM HYDROXIDE 30ML CUP PO PRN (14:00)
[2019-02-06] MEDS ORDERED: oxyCODONE 5 MG TAB PO PRN ×3 (14:00)
[2019-02-06] MEDS ORDERED: NALOXONE (0.4 MG/ML) INJ IV PRN (14:00)
[2019-02-06] MEDS ORDERED: NACL 0.9% 3 ML SYG IV SCH (14:00)
[2019-02-06] MEDS ORDERED: BISACODYL 10 MG SUPP PR PRN (14:00)
[2019-02-06] MEDS: LACTATED RINGER'S 1,000 ML IV SCH ×2 (15:02→18:57)
[2019-02-06] MEDS: CEFAZOLIN 2 GM/50 ML (PMX) 50 ML IVPB SCH ×2 (15:09→22:24)
--- NOTE | 2019-02-06 16:51 | HP ---
Date/Time of Note Date/Time of Note DATE: 02/06/19 TIME: 16:35 Assessment/Plan VTE Prophylaxis SCD applied (from Nsg): Yes Pharmacological prophylaxis: other Lines/Catheters IV Catheter Type (from Nrsg): Peripheral IV Assessment/Plan Assessment/Plan -Failed left total hip replacement. S/p Revision of left total hip replacement by Dr Campo on 02/06/19. Continue IV fluids and postoperative antibiotic. Continue oxycodone for pain and Zofran as needed for nausea. Physical therapy. -Hypothyroidism, continue levothyroxine -Hypertension, continue Norvasc Further recommendations based on clinical course. Plan of care discussed with Dr. Pal. HPI/ROS Admit Date/Time Admit Date/Time February 06, 2019 at 06:46 Hx of Present Illness Patient is 73-year-old female with history of hypertension, hypothyroidism. 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 Patient underwent revision of left total hip replacement. Patient is admitted for operative management and physical therapy because surgical floor. Patient denies any chest pain denies shortness of breath, denies any nausea vomiting diarrhea, pain is adequately controlled. ROS 12 point review of system is negative except for what mentioned in HPI PMH/Family/Social Past Medical History Medical History: hypertension, hypothyroid Medications Current Medications Ketorolac Tromethamine (Toradol) 30 mg Q6H PRN IV .PAIN 6-10; Start 02/06/19 at 13:00; Stop 02/07/19 at 12:59 Acetaminophen (Tylenol Tab) 500 mg Q4H PRN PO .PAIN 1-3; Start 02/06/19 at 13:00; Stop 02/07/19 at 12:59 Ondansetron HCl (Zofran Inj) 4 mg Q6H PRN IV .NAUSEA/VOMITING; Start 02/06/19 at 13:00; Stop 02/07/19 at 12:59 Lactated Ringer's 1,000 ml @ 80 mls/hr [id number] IV Last administered on 02/06/19at 15:02; Admin Dose 80 MLS/HR; Start 02/06/19 at 13:49 Oxycodone HCl (Roxicodone) 15 mg Q4H PRN PO .PAIN; Start 02/06/19 at 14:00 Oxycodone HCl (Roxicodone) 10 mg Q4H PRN PO .PAIN; Start 02/06/19 at 14:00 Oxycodone HCl (Roxicodone) 5 mg Q4H PRN PO .PAIN; Start 02/06/19 at 14:00 Ondansetron HCl (Zofran Inj) 4 mg Q4H PRN IV NAUSEA/VOMITING; Start 02/07/19 at 14:00 Cefazolin Sodium/ Dextrose 50 ml @ 100 mls/hr Q8H IVPB Last administered on 02/06/19at 15:09; Admin Dose 100 MLS/HR; Start 02/06/19 at 14:00; Stop 02/07/19 at 06:29 Celecoxib (Celebrex) 100 mg BID PO ; Start 02/07/19 at 09:00 Gabapentin (Neurontin) 100 mg TID PO ; Start 02/06/19 at 21:00 Pantoprazole (Protonix Tab) 40 mg DAILY@06 PO ; Start 02/07/19 at 06:00 Docusate Sodium (Colace) 200 mg BID PO ; Start 02/07/19 at 09:00; Stop 02/09/19 at 21:01 Magnesium Hydroxide (Milk Of Mag) 30 ml HS PRN PO .CONSTIPATION; Start 02/06/19 at 14:00 Bisacodyl (Dulcolax Supp) 10 mg DAILY PRN [place] .CONSTIPATION; Start 02/06/19 at 14:00 Ketorolac Tromethamine (Toradol) 15 mg Q6H PRN IV .PAIN; Start 02/06/19 at 14:00 Naloxone HCl (Narcan) 0.2 mg Q2M PRN IV .RESP RATE; Start 02/06/19 at 14:00 IV Flush (NS 3 ml) 3 ml per protocol IV ; Start 02/06/19 at 14:00 Aspirin (Halfprin) 81 mg BID PO ; Start 02/07/19 at 09:00 Coded Allergies: rivaroxaban (Verified Allergy, Severe, 02/06/19) HEMATOMA, INFECTION teriparatide (Verified Adverse Reaction, Unknown, HEADACHE, 02/06/19) Past Surgical History Past Surgical Hx: other (Status post left hip replacement, status post right hip replacement x2, status post left knee replacement, status post cataract surgery, status post lymphoma removal left chest, status post cholecystectomy, status post hysterectomy) Social History Alcohol Use: none Smoking Status: Never smoker Drug Use: none Exam/Review of Systems Vital Signs Vitals Vital Signs Date Temp Pulse Resp B/P (MAP) Pulse Ox O2 O2 Flow FiO2 Time Delivery Rate 02/06/19 97.5 69 18 151/67 100 15:44 (95) 02/06/19 Room Air 08:16 Exam Constitutional: alert, oriented Head: normocephalic Respiratory: clear to auscultation Cardiovascular: nl pulses Gastrointestinal: soft, non-tender Extremities: normal pulses, other (Status post left hip surgery) Neurological: nl mental status VICENTE BRITO February 06, 2019 16:46
[2019-02-06] MEDS: GABAPENTIN 100 MG CAP PO SCH (20:57)
[2019-02-06] MEDS: MELOXICAM 7.5 MG TAB PO SCH (20:57)
[2019-02-06] MEDS ORDERED: GABAPENTIN 100 MG CAP PO SCH (21:00)
[2019-02-06] MEDS: CYCLOSPORINE 0.05% OPH DROPERETTE BOTH EYES SCH (22:24)
[2019-02-07 00:10] VITALS: BP 109/55; PULSE 67; RESP 20
[2019-02-07 05:00] VITALS: BP 122/58; PULSE 57; RESP 18
[2019-02-07] MEDS ORDERED: LEVOTHYROXINE 100 MCG TAB PO SCH ×2 (05:00→07:00)
[2019-02-07] MEDS ORDERED: PANTOPRAZOLE (EC) 40 MG TAB PO SCH (06:00)
[2019-02-07] MEDS: CEFAZOLIN 2 GM/50 ML (PMX) 50 ML IVPB SCH (06:22)
[2019-02-07 08:20] VITALS: BP 136/63; PULSE 64; RESP 18
[2019-02-07] MEDS ORDERED: LOSARTAN 50 MG TAB PO SCH (09:00)
[2019-02-07] MEDS ORDERED: ASCORBIC ACID 500 MG TAB PO SCH (09:00)
[2019-02-07] MEDS ORDERED: ASPIRIN (EC) 81 MG TAB PO SCH (09:00)
[2019-02-07] MEDS ORDERED: AMLODIPINE 10 MG TAB PO SCH (09:00)
[2019-02-07] MEDS ORDERED: DOCUSATE SODIUM 100 MG CAP PO SCH (09:00)
[2019-02-07] MEDS ORDERED: CELECOXIB 100 MG CAP PO SCH (09:00)
[2019-02-07] MEDS ORDERED: LIOTHYRONINE 5 MCG TAB PO SCH (09:00)
[2019-02-07] MEDS ORDERED: CHOLECALCIFEROL 1,000 UNIT TAB PO SCH (09:00)
[2019-02-07] MEDS: CYCLOSPORINE 0.05% OPH DROPERETTE BOTH EYES SCH (09:21)
[2019-02-07] MEDS: MELOXICAM 7.5 MG TAB PO SCH (09:22)
[2019-02-07] MEDS: GABAPENTIN 100 MG CAP PO SCH ×2 (09:25→13:31)
--- NOTE | 2019-02-07 11:50 | PN ---
Date/Time of Note Date/Time of Note DATE: 02/07/19 TIME: 11:50 Assessment/Plan VTE Prophylaxis Risk score (from Nsg)>0 risk: 8 SCD applied (from Nsg): Yes Lines/Catheters IV Catheter Type (from Nrsg): Peripheral IV Urinary Cath still in place: No Assessment/Plan Assessment/Plan -Failed left total hip replacement. S/p Revision of left total hip replacement by Dr Campo on 02/06/19. Continue IV fluids and postoperative antibiotic. Continue oxycodone for pain and Zofran as needed for nausea. Physical therapy. -Hypothyroidism, continue levothyroxine -Hypertension, continue Norvasc Further recommendations based on clinical course. Plan of care discussed with Dr. Pal. Result Diagram: 02/07/19 0415 02/07/19 0415 Results 24hrs Laboratory Tests Test 02/07/19 04:15 02/07/19 06:44 White Blood Count 8.9 # Red Blood Count 3.36 L Hemoglobin 10.0 L Hematocrit 30.9 L Mean Corpuscular Volume 92.0 Mean Corpuscular Hemoglobin 29.8 Mean Corpuscular Hemoglobin Concent 32.4 Red Cell Distribution Width 13.5 Platelet Count 185 # Mean Platelet Volume 9.7 Immature Granulocytes % 0.300 Neutrophils % 84.8 H Lymphocytes % 6.6 L Monocytes % 8.0 Eosinophils % 0.0 Basophils % 0.3 Nucleated Red Blood Cells % 0.0 Immature Granulocytes # 0.030 Neutrophils # 7.5 Lymphocytes # 0.6 L Monocytes # 0.7 Eosinophils # 0.0 Basophils # 0.0 Nucleated Red Blood Cells # 0.0 Sodium Level 141 Potassium Level 5.4 H Chloride Level 108 Carbon Dioxide Level 30 Anion Gap 3 L Blood Urea Nitrogen 28 H Creatinine 0.72 Est Glomerular Filtrat Rate mL/min Glucose Level 112 Calcium Level 9.8 Lab Scanned Report REFERENCE LAB Exam/Review of Systems Exam Vitals Vital Signs Date Temp Pulse Resp B/P (MAP) Pulse Ox O2 O2 Flow FiO2 Time Delivery Rate 02/07/19 97.4 64 18 136/63 100 Room Air 08:20 (87) 02/06/19 2.0 14:10 Intake and Output 02/06/19 02/06/19 02/07/19 1515:00 23:00 07:00 IntakeIntake Total 2200 ml 390 ml 950 ml OutputOutput Total 200 ml 400 ml BalanceBalance 2000 ml 390 ml 550 ml Results Results 24hrs Laboratory Tests Test 02/07/19 04:15 02/07/19 06:44 White Blood Count 8.9 # Red Blood Count 3.36 L Hemoglobin 10.0 L Hematocrit 30.9 L Mean Corpuscular Volume 92.0 Mean Corpuscular Hemoglobin 29.8 Mean Corpuscular Hemoglobin Concent 32.4 Red Cell Distribution Width 13.5 Platelet Count 185 # Mean Platelet Volume 9.7 Immature Granulocytes % 0.300 Neutrophils % 84.8 H Lymphocytes % 6.6 L Monocytes % 8.0 Eosinophils % 0.0 Basophils % 0.3 Nucleated Red Blood Cells % 0.0 Immature Granulocytes # 0.030 Neutrophils # 7.5 Lymphocytes # 0.6 L Monocytes # 0.7 Eosinophils # 0.0 Basophils # 0.0 Nucleated Red Blood Cells # 0.0 Sodium Level 141 Potassium Level 5.4 H Chloride Level 108 Carbon Dioxide Level 30 Anion Gap 3 L Blood Urea Nitrogen 28 H Creatinine 0.72 Est Glomerular Filtrat Rate mL/min Glucose Level 112 Calcium Level 9.8 Lab Scanned Report REFERENCE LAB Medications Medication Current Medications Ketorolac Tromethamine (Toradol) 30 mg Q6H PRN IV .PAIN 6-10 Last administered on 02/07/19at 09:21; Admin Dose 30 MG; Start 02/06/19 at 13:00; Stop 02/07/19 at 12:59 Acetaminophen (Tylenol Tab) 500 mg Q4H PRN PO .PAIN 1-3; Start 02/06/19 at 13:00; Stop 02/07/19 at 12:59 Ondansetron HCl (Zofran Inj) 4 mg Q6H PRN IV .NAUSEA/VOMITING; Start 02/06/19 at 13:00; Stop 02/07/19 at 12:59 Lactated Ringer's 1,000 ml @ 80 mls/hr [id number] IV Last administered on 02/06/19at 18:57; Admin Dose 80 MLS/HR; Start 02/06/19 at 13:49 Oxycodone HCl (Roxicodone) 15 mg Q4H PRN PO .PAIN; Start 02/06/19 at 14:00 Oxycodone HCl (Roxicodone) 10 mg Q4H PRN PO .PAIN; Start 02/06/19 at 14:00 Oxycodone HCl (Roxicodone) 5 mg Q4H PRN PO .PAIN Last administered on 02/06/19 18:58; Admin Dose 5 MG; Start 02/06/19 at 14:00 Ondansetron HCl (Zofran Inj) 4 mg Q4H PRN IV NAUSEA/VOMITING; Start 02/07/19 at 14:00 Celecoxib (Celebrex) 100 mg BID PO Last administered on 02/07/19 09:23; Admin Dose 100 MG; Start 02/07/19 at 09:00 Gabapentin (Neurontin) 100 mg TID PO Last administered on 02/07/19 09:25; Admin Dose 100 MG; Start 02/06/19 at 21:00 Pantoprazole (Protonix Tab) 40 mg DAILY@06 PO Last administered on 02/07/19 06:22; Admin Dose 40 MG; Start 02/07/19 at 06:00 Docusate Sodium (Colace) 200 mg BID PO Last administered on 02/07/19 09:24; Admin Dose 200 MG; Start 02/07/19 at 09:00; Stop 02/09/19 at 21:01 Magnesium Hydroxide (Milk Of Mag) 30 ml HS PRN PO .CONSTIPATION; Start 02/06/19 at 14:00 Bisacodyl (Dulcolax Supp) 10 mg DAILY PRN [place] .CONSTIPATION; Start 02/06/19 at 14:00 Ketorolac Tromethamine (Toradol) 15 mg Q6H PRN IV .PAIN; Start 02/06/19 at 14:00 Naloxone HCl (Narcan) 0.2 mg Q2M PRN IV .RESP RATE; Start 02/06/19 at 14:00 IV Flush (NS 3 ml) 3 ml per protocol IV ; Start 02/06/19 at 14:00 Aspirin (Halfprin) 81 mg BID PO Last administered on 02/07/19 09:23; Admin Dose 81 MG; Start 02/07/19 at 09:00 Amlodipine Besylate (Norvasc) 10 mg DAILY PO Last administered on 02/07/19 09:24; Admin Dose 10 MG; Start 02/07/19 at 09:00 Ascorbic Acid (Vitamin C) 500 mg DAILY PO Last administered on 02/07/19 09:24; Admin Dose 500 MG; Start 02/07/19 at 09:00 Cholecalciferol (Vitamin D) 5,000 unit DAILY PO Last administered on 02/07/19 09:22; Admin Dose 5,000 UNIT; Start 02/07/19 at 09:00 Cyclosporine (Restasis) 1 drop Q12 BOTH EYES Last administered on 02/07/19 09:21; Admin Dose 1 DROP; Start 02/06/19 at 21:00 Liothyronine Sodium (Cytomel) 5 mcg DAILY PO Last administered on 02/07/19 09:22; Admin Dose 5 MCG; Start 02/07/19 at 09:00 Meloxicam (Mobic) 7.5 mg BID PO Last administered on 02/07/19 09:22; Admin Dose 7.5 MG; Start 02/06/19 at 21:00 Losartan Potassium (Cozaar) 100 mg DAILY PO Last administered on 02/07/19 09:23; Admin Dose 100 MG; Start 02/07/19 at 09:00 Levothyroxine Sodium (Synthroid) 100 mcg DAILY@0500 PO Last administered on 02/07/19 04:46; Admin Dose 100 MCG; Start 02/07/19 at 05:00 DOMENICA FRIEND February 07, 2019 11:50
[2019-02-07] MEDS ORDERED: NA POLYST SULFON 15 GM/60 ML BTL PO ONE (12:00)
[2019-02-07] MEDS ORDERED: SODIUM POLYSTYRENE 15 GM KIT (POWDER + SORBITOL) PO SCH (13:30)
[2019-02-07] MEDS ORDERED: ONDANSETRON 4 MG INJ IV PRN (14:00)
== END 2019-02-07 14:59 | disposition home health service (06) | DRG 468 ==
LOC: REC 06:46 → MS1 15:30
PROVIDERS: ADMIT Orthopaedic Surgery; ATTEND Orthopaedic Surgery
PROC: 0SPB0JZ Removal of Synthetic Substitute from Left Hip Joint, Open Approach (ICD-10-PCS; 2019-02-06)
PROC: 0SRB06A Replacement of Left Hip Joint with Oxidized Zirconium on Polyethylene Synthetic Substitute, Uncemented, Open Approach (ICD-10-PCS; principal; 2019-02-06 10:00)
DX: T84.031A Mechanical loosening of internal left hip prosthetic joint, initial encounter (principal); E03.9 Hypothyroidism, unspecified; I10 Essential (primary) hypertension
CPT/HCPCS: 73530; 80048; 85025; 86850; 86900; 86901; 87081; 88304; 97116; 97161; 97165; 97530; C1713; C1776; J0171; J0690; J0735; J1100; J1885; J2250; J2405; J2795; J7120

== ENCOUNTER 2019-05-22 05:18 | Inpatient (IN) | payer MEDICARE, BC ==
[2019-05-21 15:44] VITALS: Ht 162.6 cm; Wt 70.5 kg
[2019-05-22] VITALS (21 sets, daily range): BP systolic 120–155; BP diastolic 49–69; PULSE 68–102; RESP 13–23
[~2019-05-22] VITALS: Ht 162.6 cm; Wt 70.5 kg
[~2019-05-22 05:18] MED LIST changes: -ACETAMINOPHEN 500 MG TAB PO ONE; -CEFAZOLIN 2 GM/50 ML (PMX) 50 ML (FOR WT < 120 KG) IVPB ONE; -DEXAMETHASONE 4 MG/ML 1 ML INJ IV ONE; +GABA100C14 PO; -LACTATED RINGER'S 1,000 ML IV SCH; +LIOT5TAB10 PO; -LIOT5TAB3 PO; +MELO7.5T38 PO; +OLME20TA19 PO; -OLME20TA20 PO; -TRANEXAMIC ACID 1GM/100ML(PMX) 100 ML AT INCISION X1 IVPB ONE
[2019-05-22] MEDS: LACTATED RINGER'S 1,000 ML IV SCH ×4 (06:17→21:51)
[2019-05-22] MEDS ORDERED: TRANEXAMIC ACID 1GM/100ML(PMX) 100 ML AT INCISION X1 IVPB ONE (07:00)
[2019-05-22] MEDS ORDERED: CEFAZOLIN 2 GM/50 ML (PMX) 50 ML (FOR WT < 120 KG) IVPB ONE (07:00)
[2019-05-22] MEDS ORDERED: TRANEXAMIC ACID 1GM/100ML(PMX) 100 ML AT CLOSURE X1 IVPB ONE (07:00)
[2019-05-22] MEDS ORDERED: ACETAMINOPHEN 1000MG/100ML IV 100 ML IVPB ONE (07:00)
[2019-05-22] MEDS ORDERED: DEXAMETHASONE 4 MG/ML 1 ML INJ IV ONE (07:00)
[2019-05-22] MEDS ORDERED: POLYMYXIN B 500000 UNIT INJ ONE (07:03)
[2019-05-22] MEDS ORDERED: BACITRACIN 50000 UNITS INJ ONE (07:04)
[2019-05-22] MEDS ORDERED: PROPOFOL 20 ML ONE (07:37)
[2019-05-22] MEDS ORDERED: ONDANSETRON 4 MG INJ ONE (07:37)
[2019-05-22] MEDS ORDERED: METOCLOPRAMIDE 10 MG INJ ONE (07:37)
[2019-05-22] MEDS ORDERED: morphine SULFATE/PF (10 MG/10 ML) INJ ONE (07:37)
[2019-05-22] MEDS ORDERED: MIDAZOLAM 1 MG/ML 2 ML INJ ONE (07:39)
[2019-05-22] MEDS ORDERED: FENTAnyl 50 MCG/ML VIAL ONE (07:39)
[2019-05-22] MEDS ORDERED: EPHEDrine 25 MG/5 ML SYG ONE (08:25)
[2019-05-22] MEDS ORDERED: TRANEXAMIC ACID 1GM/100ML(PMX) 200 ML ONE (08:27)
[2019-05-22] MEDS ORDERED: FENTAnyl 50 MCG/ML VIAL IV PRN ×3 (08:30)
[2019-05-22] MEDS ORDERED: ONDANSETRON 4 MG INJ IV PRN (08:30)
[2019-05-22] MEDS ORDERED: HYDROmorphONE 1 MG/5 ML IV SYRINGE IV PRN ×3 (08:30)
[2019-05-22] MEDS ORDERED: MEPERIDINE 25 MG INJ IV PRN (08:30)
[2019-05-22] MEDS ORDERED: DIPHENHYDRAMINE 50 MG INJ IV PRN (08:30)
[2019-05-22] MEDS ORDERED: LIDOCAINE 2% (SDV) 5 ML INJ ONE ×2 (09:06)
[2019-05-22] MEDS ORDERED: ROPIVACAINE 0.2% 20 ML VIAL ONE (09:08)
[2019-05-22] MEDS ORDERED: MAGNESIUM HYDROXIDE 30ML CUP PO PRN (09:30)
[2019-05-22] MEDS ORDERED: NALOXONE (0.4 MG/ML) INJ IV PRN (09:30)
[2019-05-22] MEDS ORDERED: NACL 0.9% 3 ML SYG IV SCH (09:30)
[2019-05-22] MEDS ORDERED: KETOROLAC 15 MG INJ IV PRN (09:30)
[2019-05-22] MEDS ORDERED: oxyCODONE 5 MG TAB PO PRN ×2 (09:30)
[2019-05-22] MEDS: GABAPENTIN 100 MG CAP PO SCH ×2 (13:00→21:00)
[2019-05-22] MEDS ORDERED: CEFAZOLIN 2 GM/50 ML (PMX) 50 ML IVPB SCH (13:00)
[2019-05-22] MEDS: ONDANSETRON 4 MG INJ IV PRN ×2 (16:03→21:55)
[2019-05-22] MEDS ORDERED: METOCLOPRAMIDE 10 MG INJ IV PRN (17:30)
[2019-05-22] MEDS: CYCLOSPORINE 0.05% OPH DROPERETTE BOTH EYES SCH (21:55)
[2019-05-23 02:00] VITALS: BP 152/67; PULSE 82; RESP 20
[2019-05-23] MEDS: ONDANSETRON 4 MG INJ IV PRN ×2 (02:02→06:16)
[2019-05-23] MEDS: LACTATED RINGER'S 1,000 ML IV SCH (02:04)
[2019-05-23 05:00] VITALS: BP 148/65; PULSE 78; RESP 18
[2019-05-23] MEDS ORDERED: PANTOPRAZOLE (EC) 40 MG TAB PO SCH (06:00)
[2019-05-23] MEDS ORDERED: LEVOTHYROXINE 100 MCG TAB PO SCH (07:00)
[2019-05-23 08:09] VITALS: BP 148/86; RESP 18
[2019-05-23] MEDS: CYCLOSPORINE 0.05% OPH DROPERETTE BOTH EYES SCH (08:30)
[2019-05-23] MEDS: GABAPENTIN 100 MG CAP PO SCH ×2 (08:34→13:00)
[2019-05-23] MEDS ORDERED: CHOLECALCIFEROL 1,000 UNIT TAB PO SCH (09:00)
[2019-05-23] MEDS ORDERED: DOCUSATE SODIUM 100 MG CAP PO SCH (09:00)
[2019-05-23] MEDS ORDERED: NON-FORMULARY/PATIENT OWN MED (Olmesartan Medoxomil (Benicar) 20 MG) PO SCH (09:00)
[2019-05-23] MEDS ORDERED: ASPIRIN (EC) 81 MG TAB PO SCH (09:00)
[2019-05-23] MEDS ORDERED: LIOTHYRONINE 5 MCG TAB PO SCH (09:00)
[2019-05-23] MEDS ORDERED: AMLODIPINE 10 MG TAB PO SCH (09:00)
[2019-05-23] MEDS ORDERED: LOSARTAN 25 MG TAB PO SCH (09:00)
[2019-05-23] MEDS ORDERED: ASCORBIC ACID 500 MG TAB PO SCH (09:00)
[2019-05-23] MEDS ORDERED: ONDANSETRON 4 MG INJ IV PRN (09:30)
== END 2019-05-23 14:05 | disposition home health service (06) | DRG 468 ==
LOC: REC 05:18 → MS1 10:39
PROVIDERS: ADMIT Orthopaedic Surgery; ATTEND Orthopaedic Surgery
PROC: 0SPB0JZ Removal of Synthetic Substitute from Left Hip Joint, Open Approach (ICD-10-PCS; 2019-05-22)
PROC: 0SRB0JA Replacement of Left Hip Joint with Synthetic Substitute, Uncemented, Open Approach (ICD-10-PCS; principal; 2019-05-22 07:30)
DX: T84.021A Dislocation of internal left hip prosthesis, initial encounter (principal); R11.2 Nausea with vomiting, unspecified; R33.9 Retention of urine, unspecified; I10 Essential (primary) hypertension; E03.9 Hypothyroidism, unspecified; H04.129 Dry eye syndrome of unspecified lacrimal gland; M19.90 Unspecified osteoarthritis, unspecified site
CPT/HCPCS: 80048; 85025; 85610; 86850; 86900; 86901; 87070; 87075; 87081; 88300; 97116; 97161; 97166; 97530; 97535; J0131; J0171; J0690; J0735; J1100; J1885; J2250; J2274; J2405; J2765; J2795; J3010; J7120